=== PATIENT | female | born 1990 | race Caucasian/White ===

== ENCOUNTER 2019-01-21 08:43 | Emergency (ER) | payer OTHER ==
[~2019-01-21] VITALS: Ht 167.6 cm; Wt 56.7 kg
--- OUTSIDE RECORDS SUMMARY | 2019-01-21 08:49 | XMS REPORT | Continuity of Care Document ---
Author Organization Unknown Address Unknown Allergies There is no data. Medications There is no data. Problems There is no data. Procedures There is no data. Results There is no data. Encounters ACCT No. Visit Date/Time Discharge Status Pt. Type Provider Facility Loc./Unit Complaint [id number] 12/27/2018 13:10:00 12/27/2018 23:59:59 CLS Outpatient HAIDER NUNN [facility] IN [facility]
--- OUTSIDE RECORDS SUMMARY | 2019-01-21 08:49 | XMS REPORT ---
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
[2019-01-21 09:01] VITALS: BP_SYST 106; BP_SYST 107; BP_DIAS 65; BP_DIAS 66
--- NOTE | 2019-01-21 09:04 | ED Syncope ---
General Chief Complaint: Dizziness/Syncope Stated Complaint: NEAR SYNCOPE Source of Information: Patient Exam Limitations: No Limitations History of Present Illness Date Seen by Provider: January 21, 2019 Time Seen by Provider: 09:03 Initial Comments Patient presents c/ c/o of nearly passing out while @ work this AM. States she felt fine when she went to work @ 07:00. Says she became dizzy and may have passed out briefly, although states she could here people talking around her. No loss of bowel, or bladder. Denies any recent head injury, or trauma. Feels back to baseline now. Timing/Prior Episodes: No Prior History Symptoms Prior to Episode: Lightheadedness Precipitating Factors: Other (unknown) Loss of Consciousness: Brief (Seconds) (???) Current Symptoms: Back to Normal Allergies and Home Medications Allergies Coded Allergies: Penicillins (Verified Allergy, Unknown, 01/21/19) Home Medications Ciprofloxacin HCl 500 Mg Tablet, 500 MG PO BID Prescribed by: SHEFALI WILSON on 01/21/19 1003 Patient Home Medication List Home Medication List Reviewed: Yes Review of Systems Constitutional: see HPI Cardiovascular: syncope (near) Psychiatric/Neurological: See HPI, Other (dizzy/lighheaded) All Other Systems Reviewed Negative Unless Noted: Yes (Negative excepted noted.) Physical Exam Vital Signs Vital Signs - First Documented 01/21/19 08:50 Temp 98.6 Pulse 86 Resp 16 B/P (MAP) 112/74 (87) Pulse Ox 97 O2 Delivery Room Air Capillary Refill : Height, Weight, BMI Height: '" Weight: lbs. oz. kg; BMI Method: General Appearance: No Apparent Distress, WD/WN HEENT: Normal ENT Inspection Neck: Normal Inspection Cardiovascular: Regular Rate, Rhythm Respiratory: No Respiratory Distress Neurologic/Psychiatric: Alert, Oriented x3, No Motor/Sensory Deficits, Normal Mood/Affect Cranial Nerves: Normal Hearing, Normal Speech Motor/Sensory: No Motor Deficit, No Sensory Deficit Skin: Warm/Dry Progress/Results/Core Measures Results/Orders Lab Results Laboratory Tests Test 01/21/19 08:45 01/21/19 09:17 Range/Units Urine Color YELLOW Urine Clarity CLEAR Urine pH 7.0 5-9 Urine Specific [place] 1.015 L 1.016-1.022 Urine Protein NEGATIVE NEGATIVE Urine Glucose (UA) NEGATIVE NEGATIVE Urine Ketones NEGATIVE NEGATIVE Urine Nitrite NEGATIVE NEGATIVE Urine Bilirubin NEGATIVE NEGATIVE Urine Urobilinogen 0.2 NORMAL MG/DL Urine Leukocyte Esterase 1+ H NEGATIVE Urine RBC (Auto) NEGATIVE NEGATIVE Urine RBC NONE /HPF Urine WBC 5-10 H /HPF Urine Squamous Epithelial Cells 2-5 /HPF Urine Crystals NONE /LPF Urine Bacteria FEW H /HPF Urine Casts NONE /LPF Urine Mucus MODERATE H /LPF Urine Culture Indicated YES Urine Test NEGATIVE NEGATIVE White Blood Count 6.4 4.3-11.0 10^3/uL Red Blood Count 3.90 L 4.35-5.85 10^6/uL Hemoglobin 12.8 11.5-16.0 G/DL Hematocrit 38 35-52 % Mean Corpuscular Volume 96 80-99 FL Mean Corpuscular Hemoglobin 33 25-34 PG Mean Corpuscular Hemoglobin Concent 34 32-36 G/DL Red Cell Distribution Width 12.2 10.0-14.5 % Platelet Count 300 130-400 10^3/uL Mean Platelet Volume 9.4 7.4-10.4 FL Neutrophils (%) (Auto) 70 42-75 % Lymphocytes (%) (Auto) 20 12-44 % Monocytes (%) (Auto) 9 0-12 % Eosinophils (%) (Auto) 1 0-10 % Basophils (%) (Auto) 0 0-10 % Neutrophils # (Auto) 4.4 1.8-7.8 X 10^3 Lymphocytes # (Auto) 1.3 1.0-4.0 X 10^3 Monocytes # (Auto) 0.5 0.0-1.0 X 10^3 Eosinophils # (Auto) 0.1 0.0-0.3 10^3/uL Basophils # (Auto) 0.0 0.0-0.1 10^3/uL Sodium Level 143 135-145 MMOL/L Potassium Level 4.3 3.6-5.0 MMOL/L Chloride Level 106 98-107 MMOL/L Carbon Dioxide Level 24 21-32 MMOL/L Anion Gap 13 5-14 MMOL/L Blood Urea Nitrogen 14 7-18 MG/DL Creatinine 0.77 0.60-1.30 MG/DL Estimat Glomerular Filtration Rate > 60 BUN/Creatinine Ratio 18 Glucose Level 101 70-105 MG/DL Calcium Level 9.3 8.5-10.1 MG/DL Corrected Calcium 8.5-10.1 MG/DL Magnesium Level 2.0 1.8-2.4 MG/DL Total Bilirubin 0.4 0.1-1.0 MG/DL Aspartate Amino Transf (AST/SGOT) 11 5-34 U/L Alanine Aminotransferase (ALT/SGPT) 9 0-55 U/L Alkaline Phosphatase 74 40-136 U/L Total Protein 6.9 6.4-8.2 GM/DL Albumin 4.6 H 3.2-4.5 GM/DL My Orders Orders - SHEFALI WILSON DO Ua Culture If Indicated (01/21/19 09:00) Hcg,Qualitative Urine (01/21/19 09:00) Cbc With Automated Diff (01/21/19 09:04) Comprehensive Metabolic Panel (01/21/19 09:04) Magnesium (01/21/19 09:04) Orthostatic Vital Signs (Adult (01/21/19 09:04) Ed Iv/Invasive Line Start (01/21/19 09:04) Lactated Ringers (Lr 1000 Ml Iv Solution (01/21/19 09:15) Urine Culture (01/21/19 08:45) Ciprofloxacin Tablet (Cipro Tablet) (01/21/19 09:56) Vital Signs/I&O 01/21/19 01/21/19 08:50 09:01 Temp 98.6 Pulse 86 86 97 113 Resp 16 B/P (MAP) 112/74 (87) 106/65 (79) 107/65 (79) 106/66 (79) Pulse Ox 97 O2 Delivery Room Air Blood Pressure Mean: 79 Departure Impression Primary Impression: Near syncope Additional Impression: UTI (urinary tract infection) Disposition: 01 HOME, SELF-CARE Condition: Improved Departure-Patient Inst. Decision time for Depature: 10:02 Referrals: HAIDER NUNN MD (PCP/Family) Primary Care Physician Patient Instructions: Urinary Tract Infection, Adult (DC), Near Fainting (DC) Add. Discharge Instructions: All discharge instructions reviewed with patient and/or family. Voiced understanding. NEED TO STAY WELL HYDRATED. DRINK PLENTY OF WATER. Scripts Ciprofloxacin HCl (Ciprofloxacin HCl) 500 Mg Tablet 500 MG PO BID for UTI for 7 Days, #14 TAB 0 Refills Prov: SHEFALI WILSON DO 01/21/19 Work/School Note: Work Release Form Date Seen in the Emergency Department: January 21, 2019 Return to Work: January 22, 2019 SHEFALI WILSON DO January 21, 2019 09:04
[2019-01-21 09:15] LABS: BILIRUBIN,URINE NEGATIVE (NEGATIVE); CLARITY,URINE CLEAR; COLOR,URINE YELLOW; GLUCOSE, URINE (UA) NEGATIVE (NEGATIVE); KETONES,URINE NEGATIVE (NEGATIVE); LEUKOCYTE ESTERASE ,URINE 1+ (NEGATIVE); NITRITE,URINE NEGATIVE (NEGATIVE); PROTEIN,URINE NEGATIVE (NEGATIVE); UROBILINOGEN,URINE 0.2 MG/DL (NORMAL)
[2019-01-21] MEDS ORDERED: LACTATED RINGERS 1,000 ML IV SCH (09:15)
[2019-01-21 09:16] LABS: BACTERIA,URINE FEW /HPF; HCG,QUALITATIVE URINE NEGATIVE (NEGATIVE)
[2019-01-21 09:23] LABS: WHITE BLOOD COUNT 6.4 10^3/uL (4.3-11.0)
[2019-01-21 09:24] LABS: BASOPHILS % (AUTO) 0 % (0-10); EOSINOPHILS # (AUTO) 0.1 10^3/uL (0.0-0.3); EOSINOPHILS % (AUTO) 1 % (0-10); HEMATOCRIT 38 % (35-52); HEMOGLOBIN 12.8 G/DL (11.5-16.0); LYMPHOCYTES # (AUTO) 1.3 X 10^3 (1.0-4.0); LYMPHOCYTES % (AUTO) 20 % (12-44); MEAN CORPUSCULAR HEMOGLOBIN 33 PG (25-34); MEAN CORPUSCULAR HGB CONC 34 G/DL (32-36); MEAN CORPUSCULAR VOLUME 96 FL (80-99); MEAN PLATELET VOLUME 9.4 FL (7.4-10.4); MONOCYTES # (AUTO) 0.5 X 10^3 (0.0-1.0); MONOCYTES % (AUTO) 9 % (0-12); NEUTROPHILS # (AUTO) 4.4 X 10^3 (1.8-7.8); NEUTROPHILS % (AUTO) 70 % (42-75); PLATELET COUNT 300 10^3/uL (130-400); RED CELL DISTRIBUTION WIDTH 12.2 % (10.0-14.5)
[2019-01-21 09:45] LABS: ALANINE AMINOTRANSFERASE 9 U/L (0-55); ALKALINE PHOSPHATASE 74 U/L (40-136); BILIRUBIN,TOTAL 0.4 MG/DL (0.1-1.0); BUN/CREATININE RATIO 18; CALCIUM 9.3 MG/DL (8.5-10.1); CARBON DIOXIDE 24 MMOL/L (21-32); CHLORIDE 106 MMOL/L (98-107); CREATININE SERUM 0.77 MG/DL (0.60-1.30); GFR ESTIMATED > 60; GLUCOSE 101 MG/DL (70-105); POTASSIUM 4.3 MMOL/L (3.6-5.0); SODIUM 143 MMOL/L (135-145)
[2019-01-21 09:46] LABS: ALBUMIN 4.6 GM/DL (3.2-4.5); TOTAL PROTEIN 6.9 GM/DL (6.4-8.2)
[2019-01-21] MEDS ORDERED: CIPROFLOXACIN 500 MG (CIPRO) TABLET PO STA (09:56)
[2019-01-21] MEDS ORDERED: CIPR500T4 PO (10:03)
[2019-01-21 10:18] VITALS: BP 103/63
== END 2019-01-21 10:18 | disposition home or self-care (01) ==
LOC: ER FS 08:45
DX: N39.0 Urinary tract infection, site not specified (principal); R55 Syncope and collapse; Z88.0 Allergy status to penicillin
CPT/HCPCS: 36415; 80053; 81000; 83735; 84703; 85025; 87088; 96360

== ENCOUNTER 2019-06-15 22:23 | Emergency (ER) | payer OTHER ==
[~2019-06-15] VITALS: Ht 168 cm; Wt 62.0 kg
[~2019-06-15 22:23] MED LIST: CIPR500T4 PO
[2019-06-15] MEDS ORDERED: KETOROLAC 30 MG/ML VIAL IM ONE (22:45)
--- NOTE | 2019-06-15 22:52 | ED EENT ---
History of Present Illness General Chief Complaint: Ear Problems Stated Complaint: RIGHT EAR PAIN Source: patient Exam Limitations: no limitations History of Present Illness Date Seen by Provider: Jun 15, 2019 Time Seen by Provider: 22:31 Initial Comments Patient presents ER by private conveyance with chief complaint of pain around the right ear for the past day and a half. No fevers or chills. She noticed some yellow 10 discharge from the ear today. No history of ear infections swimming or surgeries on the eardrums. She is not having any dental pain. She's been using Tylenol 9 Profen with her last dose being at 9:00 400 mg. Allergies and Home Medications Allergies Coded Allergies: Penicillins (Verified Allergy, Unknown, 01/21/19) Home Medications Ciprofloxacin HCl 500 Mg Tablet, 500 MG PO BID Prescribed by: SHEFALI WILSON on 01/21/19 1003 Patient Home Medication List Home Medication List Reviewed: Yes Review of Systems Review of Systems Constitutional: No chills, No diaphoresis Eyes: Denies Blindness, Denies Blurred Vision Ears: See HPI; Denies Dizziness; Pain Nose: denies clots, denies congestion Past Enfclgc-Rjiyoy-Zklssh Hx Patient Social History Alcohol Use: Denies Use Recreational Drug Use: No 2nd Hand Smoke Exposure: No Recent Foreign Travel: No Contact w/Someone Who Travel: No Recent Hopitalizations: No Seasonal Allergies Seasonal Allergies: Yes Past Medical History Surgeries: Yes (knee surgery) Gallbladder Respiratory: No Cardiac: No Neurological: No Genitourinary: No Gastrointestinal: No Musculoskeletal: No Endocrine: No HEENT: No Cancer: No Psychosocial: No Physical Exam Height, Weight, BMI Height: 5'6.00" Weight: 125lbs. oz. [id number]; BMI Method:Stated General Appearance: WD/WN, mild distress Eyes: bilateral eye normal inspection, bilateral eye PERRL, bilateral eye EOMI Ears: right ear tenderness, right ear other (solitary whitish vesicle in the ear canal with an erythematous base); left ear canal normal; bilateral ear auricle normal, bilateral ear TM normal (bilateral mucoid otitis media without loss of landmarks.) Nose: normal inspection; No active bleeding Mouth/Throat: No dental tenderness; other (extensive dental caries) Neurologic/Psychiatric: rail director II-XII nml as tested, no motor/sensory deficits, alert, normal mood/affect, oriented x 3 Progress/Results/Core Measures Results/Orders My Orders Orders - SIENNA HUGHES Ketorolac Injection (Toradol Injection) (06/15/19 22:45) Progress Progress Note : Time: 22:45 Progress Note No altered taste perception, tongue lesions. No facial paralysis or drooping. Juan Alberto Garvin less likely. VZV Vs HSV? No evidence of a bacterial infection. Suspect a viral perhaps herpetic infection of the ear canal and possibly involving the cranial nerve. We'll start her on valacyclovir and give her a half dose of Toradol since she just took half a dose of ibuprofen. Discussed return precautions to primary care or ER for steroids if she begins to develop any neurologic symptoms such as facial droop, taste, paralysis etc. Departure Impression Primary Impression: Viral otitis externa of right ear Additional Impression: Otitis media with effusion Qualified Codes: H65.93 - Unspecified nonsuppurative otitis media, bilateral Disposition: 01 HOME, SELF-CARE Condition: Stable Departure-Patient Inst. Decision time for Depature: 22:49 Referrals: HAIDER NUNN MD (PCP/Family) Primary Care Physician Patient Instructions: Outer Ear Infection Add. Discharge Instructions: Start taking the valacyclovir 1000 mg 3 times a day for the next week. Continue to use Tylenol 1000 mg every 8 hours as needed for pain. Ibuprofen 800 mg every 8 hours as needed for pain. Warm compresses to the side of the face can be helpful. If you start to noticing any facial droop, alteration of taste or other worrisome neurologic symptoms then you need to follow-up with your primary care doctor and discuss starting steroids. All discharge instructions reviewed with patient and/or family. Voiced understanding. Scripts Valacyclovir HCl (Valacyclovir) 1,000 Mg Tablet 1000 MG PO TID for 7 Days, #21 TAB 0 Refills Prov: SIENNA HUGHES 06/15/19 Work/School Note: Work Release Form Date Seen in the Emergency Department: Jun 15, 2019 Return to Work: Jun 16, 2019 Restrictions: No Restrictions SIENNA HUGHES Jun 15, 2019 22:52
[2019-06-15] MEDS ORDERED: VALA1000 PO (22:54)
[2019-06-15 23:12] VITALS: BP 121/71
== END 2019-06-15 23:12 | disposition home or self-care (01) ==
LOC: EDUNIT# 22:23 → ER FS 22:24
DX: H60.8X1 Other otitis externa, right ear (principal); H65.93 Unspecified nonsuppurative otitis media, bilateral; Z88.0 Allergy status to penicillin
CPT/HCPCS: 99284

== ENCOUNTER 2021-04-07 08:33 | Emergency (ER) | payer OTHER ==
[~2021-04-07] VITALS: Ht 165.1 cm; Wt 66.1 kg
[~2021-04-07 08:33] MED LIST changes: -CIPR500T4 PO; +CIPR500T5 PO; +VALA10007 PO
[2021-04-07] MEDS ORDERED: fentaNYL INJ 100 MCG/2 ML AMP IVP STA (08:43)
--- NOTE | 2021-04-07 08:43 | ED Abdominal Pain ---
General Chief Complaint: Abdominal/GI Problems Stated Complaint: LRQ PAIN; INDIGESTION History of Present Illness Date Seen by Provider: Apr 07, 2021 Time Seen by Provider: 08:39 Initial Comments 30-year-old female presents with right lower quadrant pain that started about 2 days ago. That over the last 2 days is gotten worse. 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 Patient presented to urgent care who sent her to the ER for further evaluation for appendicitis. She denies any vomiting, diarrhea, fevers or chills. Allergies and Home Medications Allergies Coded Allergies: Penicillins (Verified Allergy, Unknown, 01/21/19) Home Medications Ciprofloxacin HCl 500 Mg Tablet, 500 MG PO BID Prescribed by: SHEFALI WILSON on 01/21/19 1003 Doxycycline Hyclate 100 Mg Tablet, 100 MG PO BID Prescribed by: THOMAS SHAVER on 04/07/21 0958 Valacyclovir HCl 1,000 Mg Tablet, 1,000 MG PO TID Prescribed by: SIENNA HUGHES on 06/15/19 6839 Patient Home Medication List Home Medication List Reviewed: Yes Review of Systems Review of Systems Constitutional: No chills, No fever Respiratory: Denies Cough, Denies Shortness of Air Cardiovascular: Denies Chest Pain, Denies Lightheadedness Gastrointestinal: Abdominal Pain; Denies Constipated, Denies Diarrhea; Nausea; Denies Vomiting Genitourinary: No Symptoms Reported Musculoskeletal: no symptoms reported Skin: no symptoms reported Psychiatric/Neurological: No Symptoms Reported Endocrine: No Symptoms Reported Past Uicivlg-Emrhbi-Fradkb Hx Seasonal Allergies Seasonal Allergies: Yes Past Medical History Surgeries: Yes (knee surgery) Gallbladder Respiratory: No Cardiac: No Neurological: No Genitourinary: No Gastrointestinal: No Musculoskeletal: No Endocrine: No HEENT: No Cancer: No Psychosocial: No Physical Exam Vital Signs Vital Signs - First Documented 04/07/21 08:38 Temp 36.4 Pulse 94 Resp 18 B/P (MAP) 130/78 (95) Pulse Ox 100 O2 Delivery Room Air Capillary Refill : Height/Weight/BMI Height: 5'6.00" Weight: 125lbs. oz. 56.010307az; 21.00 BMI Method:Stated General Appearance: WD/WN, no apparent distress Neck: full range of motion, supple Respiratory: lungs clear, normal breath sounds Cardiovascular: normal peripheral pulses, regular rate, rhythm Gastrointestinal: soft, guarding, rebound, tenderness Extremities: normal range of motion, non-tender Back: normal inspection, no CVA tenderness Neurologic/Psychiatric: alert, normal mood/affect, oriented x 3 Skin: normal color, warm/dry Progress/Results/Core Measures Results/Orders Lab Results Laboratory Tests Test 04/07/21 08:45 04/07/21 09:09 Range/Units White Blood Count 9.4 4.3-11.0 10^3/uL Red Blood Count 3.85 L 4.35-5.85 10^6/uL Hemoglobin 12.6 11.5-16.0 G/DL Hematocrit 36 35-52 % Mean Corpuscular Volume 95 80-99 FL Mean Corpuscular Hemoglobin 33 25-34 PG Mean Corpuscular Hemoglobin Concent 35 32-36 G/DL Red Cell Distribution Width 12.0 10.0-14.5 % Platelet Count 273 130-400 10^3/uL Mean Platelet Volume 9.6 7.4-10.4 FL Sodium Level 136 135-145 MMOL/L Potassium Level 3.8 3.6-5.0 MMOL/L Chloride Level 102 98-107 MMOL/L Carbon Dioxide Level 25 21-32 MMOL/L Anion Gap 9 5-14 MMOL/L Blood Urea Nitrogen 8 7-18 MG/DL Creatinine 0.79 0.60-1.30 MG/DL Estimat Glomerular Filtration Rate 84 BUN/Creatinine Ratio 10 Glucose Level 91 70-105 MG/DL Calcium Level 9.1 8.5-10.1 MG/DL Corrected Calcium 8.7 8.5-10.1 MG/DL Total Bilirubin 0.5 0.1-1.0 MG/DL Aspartate Amino Transf (AST/SGOT) 13 5-34 U/L Alanine Aminotransferase (ALT/SGPT) 10 0-55 U/L Alkaline Phosphatase 101 40-136 U/L C-Reactive Protein < 0.30 <0.50 MG/DL Total Protein 6.9 6.4-8.2 GM/DL Albumin 4.5 3.2-4.5 GM/DL Urine Color YELLOW Urine Clarity CLEAR Urine pH 5.0 5-9 Urine Specific [place] <=1.005 1.016-1.022 Urine Protein NEGATIVE NEGATIVE Urine Glucose (UA) NEGATIVE NEGATIVE Urine Ketones NEGATIVE NEGATIVE Urine Nitrite NEGATIVE NEGATIVE Urine Bilirubin NEGATIVE NEGATIVE Urine Urobilinogen 0.2 < = 1.0 MG/DL Urine Leukocyte Esterase 2+ H NEGATIVE Urine RBC (Auto) NEGATIVE NEGATIVE Urine RBC 0.2 /HPF Urine WBC 5-10 H /HPF Urine Squamous Epithelial Cells 5-10 /HPF Urine Crystals NONE /LPF Urine Bacteria TRACE /HPF Urine Casts NONE /LPF Urine Mucus NEGATIVE /LPF Urine Trichomonas FEW H /HPF Urine Culture Indicated YES Urine Test NEGATIVE NEGATIVE My Orders Orders - SHAVERTHOMAS L DO Ct Abd/Pelv W (Appendicitis) (04/07/21 08:43) Cbc No Diff (04/07/21 08:43) Comprehensive Metabolic Panel (04/07/21 08:43) Hcg,Qualitative Urine (04/07/21 08:43) Ua Culture If Indicated (04/07/21 08:43) Crp Fs (04/07/21 08:43) Fentanyl Inj (Sublimaze Injection) (04/07/21 08:43) Ed Iv/Invasive Line Start (04/07/21 08:43) Iohexol Injection (Omnipaque 350 Mg/Ml 1 (04/07/21 09:30) Received Contrast (Hold Metformin- Contr (04/07/21 09:30) Sodium Chloride Flush (Catheter Flush Sy (04/07/21 09:30) Ns (Ivpb) (Sodium Chloride 0.9% Ivpb Bag (04/07/21 09:30) Chlamydia Trachomatis Urine (04/07/21 09:53) Neis Bj Dna Urine Test (04/07/21 09:53) Urine Culture (04/07/21 09:09) Metronidazole Tablet (Flagyl Tablet) (04/07/21 10:00) Ceftriaxone (Rocephin) (04/07/21 10:00) Medications Given in ED Current Medications Medications Dose Ordered Sig/Brady Route Start Time Stop Time Status Last Admin Dose Admin Ceftriaxone Sodium 500 mg ONCE ONCE IM 04/07/21 10:00 04/07/21 10:01 DC 04/07/21 10:07 500 MG Iohexol 100 ml ONCE ONCE IV 04/07/21 09:30 04/07/21 09:31 DC 04/07/21 09:49 100 ML Metronidazole 2,000 mg ONCE ONCE PO 04/07/21 10:00 04/07/21 10:01 DC 04/07/21 10:08 2,000 MG Sodium Chloride 10 ml NEEDED PRN IV 04/07/21 09:30 04/07/21 10:28 DC 04/07/21 09:50 10 ML Sodium Chloride 100 ml ONCE ONCE IV 04/07/21 09:30 04/07/21 09:31 DC 04/07/21 09:50 100 ML Vital Signs/I&O 04/07/21 04/07/21 04/07/21 08:38 09:53 10:27 Temp 36.4 36.4 36.2 Pulse 94 88 Resp 18 18 B/P (MAP) 130/78 (95) 126/70 (95) Pulse Ox 100 100 O2 Delivery Room Air Room Air Progress Progress Note : Progress Note Patient with a negative CT scan, negative white count negative CRP. Patient does have symptoms on a urine suspicious for pelvic inflammatory disease with positive for trichomonas. Patient was given Rocephin, Flagyl here in the ER and will be sent home with doxycycline for 7 days. Patient was stable upon discharge and is to follow-up with her primary care provider in 5 to 6 days for recheck of her symptoms Diagnostic Imaging Diagonstic Imaging: CT Plain Films/CT/US/NM/MRI: abdomen Comments Date of Exam:04/07/21 CT ABD/PELV W (APPENDICITIS) PROCEDURE: CT abdomen and pelvis with contrast, rule out appendicitis. TECHNIQUE: Multiple contiguous axial images were obtained through the abdomen and pelvis after the administration of intravenous contrast. All CT scans use one or more of the following dose optimizing techniques: automated exposure control, MA and/or KvP adjustment based on patient size and exam type or iterative reconstruction. INDICATION: Right lower quadrant abdominal pain. COMPARISON: None. FINDINGS: The lung bases are clear. The gallbladder is surgically absent. Solid organs and vascular structures are grossly normal. There are some nonspecific fluid-filled loops of small bowel within the pelvis which could represent enteritis. There is some mild constipation scattered throughout the colon. There is no obstruction, free air or free fluid. The appendix is seen in the right midabdomen in the lateral aspect. There is no appendicitis. Reproductive organs appear grossly unremarkable. Physiologic follicles are seen on both ovaries. There is no inflammation. The urinary bladder is intact. There is no lymphadenopathy. No hernia identified. Osseous structures are age-appropriate. IMPRESSION: 1. Nonspecific fluid-filled loops of small bowel could represent enteritis. Please correlate clinically. 2. Mild constipation without obstruction or ileus. 3. No appendicitis identified. 4. Surgically absent gallbladder. Reviewed: Reviewed by Me, Reviewed/Discussed Departure Impression Primary Impression: Trichomonas vaginalis infection Additional Impression: Pelvic inflammatory disease (PID) Disposition: HOME, SELF-CARE Condition: Stable Departure-Patient Inst. Referrals: HAIDER NUNN MD (PCP/Family) Primary Care Physician Patient Instructions: Trichomoniasis (DC), Pelvic Inflammatory Disease ED Add. Discharge Instructions: Follow-up with your primary care provider in 5 to 7 days for recheck of your symptoms and repeat urine All discharge instructions reviewed with patient and/or family. Voiced understanding. Scripts Doxycycline Hyclate (Doxycycline Hyclate) 100 Mg Tablet 100 MG PO BID, #14 TAB 0 Refills Prov: THOMAS SHAVER DO 04/07/21 Work/School Note: Work Release Form Date Seen in the Emergency Department: Apr 07, 2021 Return to Work: Apr 08, 2021 THOMAS SHAVER DO Apr 07, 2021 08:43
[2021-04-07 09:04] LABS: HEMATOCRIT 36 % (35-52); HEMOGLOBIN 12.6 G/DL (11.5-16.0); MEAN CORPUSCULAR HEMOGLOBIN 33 PG (25-34); MEAN CORPUSCULAR HGB CONC 35 G/DL (32-36); MEAN CORPUSCULAR VOLUME 95 FL (80-99); WHITE BLOOD COUNT 9.4 10^3/uL (4.3-11.0)
[2021-04-07 09:05] LABS: MEAN PLATELET VOLUME 9.6 FL (7.4-10.4); PLATELET COUNT 273 10^3/uL (130-400)
[2021-04-07 09:18] LABS: BILIRUBIN,URINE NEGATIVE (NEGATIVE); CLARITY,URINE CLEAR; COLOR,URINE YELLOW; GLUCOSE, URINE (UA) NEGATIVE (NEGATIVE); KETONES,URINE NEGATIVE (NEGATIVE); LEUKOCYTE ESTERASE ,URINE 2+ (NEGATIVE); NITRITE,URINE NEGATIVE (NEGATIVE); PROTEIN,URINE NEGATIVE (NEGATIVE)
[2021-04-07] MEDS ORDERED: IOHEXOL 350 MG/ML 100 ML (OMNIPAQUE 350) VIAL IV ONE (09:30)
[2021-04-07] MEDS ORDERED: HOLD METFORMIN - RECEIVED CONTRAST 20 ML VIAL IV SCH (09:30)
[2021-04-07] MEDS ORDERED: NS 100 ML (IVPB) BAG IV ONE (09:30)
[2021-04-07] MEDS ORDERED: CATHETER FLUSH 10 ML SYR IV PRN (09:30)
[2021-04-07 09:34] LABS: ALANINE AMINOTRANSFERASE 10 U/L (0-55); ALBUMIN 4.5 GM/DL (3.2-4.5); ALKALINE PHOSPHATASE 101 U/L (40-136); BILIRUBIN,TOTAL 0.5 MG/DL (0.1-1.0); BUN/CREATININE RATIO 10; CALCIUM 9.1 MG/DL (8.5-10.1); CARBON DIOXIDE 25 MMOL/L (21-32); CHLORIDE 102 MMOL/L (98-107); CREATININE SERUM 0.79 MG/DL (0.60-1.30); GFR ESTIMATED 84; GLUCOSE 91 MG/DL (70-105); POTASSIUM 3.8 MMOL/L (3.6-5.0); SODIUM 136 MMOL/L (135-145); TOTAL PROTEIN 6.9 GM/DL (6.4-8.2)
[2021-04-07 09:44] LABS: BACTERIA,URINE TRACE /HPF; RBC,URINE 0.2 /HPF
[2021-04-07 09:45] LABS: TRICHOMONAS,URINE FEW /HPF
[2021-04-07] MEDS ORDERED: DOXY100T2 PO (09:58)
[2021-04-07] MEDS ORDERED: cefTRIAXone 1,000 MG VIAL IM ONE (10:00)
[2021-04-07] MEDS ORDERED: metroNIDAZOLE 500 MG (FLAGYL) TAB PO ONE (10:00)
--- NOTE | 2021-04-07 10:11 | Diagnostic Imaging Report ---
PROCEDURE: CT abdomen and pelvis with contrast, rule out appendicitis. TECHNIQUE: Multiple contiguous axial images were obtained through the abdomen and pelvis after the administration of intravenous contrast. All CT scans use one or more of the following dose optimizing techniques: automated exposure control, MA and/or KvP adjustment based on patient size and exam type or iterative reconstruction. INDICATION: Right lower quadrant abdominal pain. COMPARISON: None. FINDINGS: The lung bases are clear. The gallbladder is surgically absent. Solid organs and vascular structures are grossly normal. There are some nonspecific fluid-filled loops of small bowel within the pelvis which could represent enteritis. There is some mild constipation scattered throughout the colon. There is no obstruction, free air or free fluid. The appendix is seen in the right midabdomen in the lateral aspect. There is no appendicitis. Reproductive organs appear grossly unremarkable. Physiologic follicles are seen on both ovaries. There is no inflammation. The urinary bladder is intact. There is no lymphadenopathy. No hernia identified. Osseous structures are age-appropriate. IMPRESSION: 1. Nonspecific fluid-filled loops of small bowel could represent enteritis. Please correlate clinically. 2. Mild constipation without obstruction or ileus. 3. No appendicitis identified. 4. Surgically absent gallbladder. Dictated by: Dictated on workstation # [id number]
[2021-04-07 10:27] VITALS: BP 126/70
== END 2021-04-07 10:27 | disposition home or self-care (01) ==
LOC: EDUNIT# 08:33 → ER FS 08:34
DX: A59.01 Trichomonal vulvovaginitis (principal); N73.9 Female pelvic inflammatory disease, unspecified
CPT/HCPCS: 36415; 74177; 80053; 81000; 84703; 85027; 86141; 87088; 87491; 87591

== ENCOUNTER 2022-01-02 08:39 | Emergency (ER) | payer OTHER ==
[~2022-01-02] VITALS: Ht 165 cm; Wt 160.0 kg
[~2022-01-02 08:39] MED LIST changes: +DOXY100T2 PO
[2022-01-02] MEDS ORDERED: ONDANSETRON 4 MG/2 ML (SDV) Z0FRAN IVP ONE (09:00)
[2022-01-02] MEDS ORDERED: NS IV 1000 ML 1,000 ML IV SCH (09:00)
[2022-01-02 09:17] LABS: BASOPHILS % (AUTO) 0 % (0-10); EOSINOPHILS # (AUTO) 0.1 10^3/uL (0.0-0.3); EOSINOPHILS % (AUTO) 1 % (0-10); HEMATOCRIT 37 % (35-52); HEMOGLOBIN 12.9 g/dL (11.5-16.0); LYMPHOCYTES # (AUTO) 1.4 10^3/uL (1.0-4.0); LYMPHOCYTES % (AUTO) 18 % (12-44); MEAN CORPUSCULAR HEMOGLOBIN 33 pg (25-34); MEAN CORPUSCULAR HGB CONC 35 g/dL (32-36); MEAN CORPUSCULAR VOLUME 95 fL (80-99); MEAN PLATELET VOLUME 9.8 fL (9.0-12.2); MONOCYTES # (AUTO) 0.8 10^3/uL (0.0-1.0); MONOCYTES % (AUTO) 10 % (0-12); NEUTROPHILS # (AUTO) 5.7 10^3/uL (1.8-7.8); NEUTROPHILS % (AUTO) 71 % (42-75); PLATELET COUNT 255 10^3/uL (130-400)
--- NOTE | 2022-01-02 09:23 | ED General ---
General Chief Complaint: Abdominal/GI Problems Stated Complaint: SYNCOPAL EPISODE Source of Information: Patient History of Present Illness Date Seen by Provider: January 02, 2022 Time Seen by Provider: 08:45 Initial Comments Patient is a 37-year-old G2, P1, estimated 4 weeks gestation female presents with dizziness while working indoors at work. Patient reports positive home test 2 weeks ago with daily morning sickness. This morning while at work she felt nauseated and dizzy and. Patient drinks a warm indoor environment with limited circulation with decreased caloric intake despite drinking constan tly throughout the day. Denies fever chills chest pain palpitation shortness of breath. Denies vomiting. No abdominal pain, urinary frequency urgency or dysuria. No leg pain or swelling. No other acute symptoms or complaints. Last menstrual period was approximately 4 to 6 weeks ago. Timing/Duration: 1 Week Severity: Mild Modifying Factors: improves with Other Associated Systoms: Other Allergies and Home Medications Allergies Coded Allergies: Penicillins (Verified Allergy, Unknown, 01/21/19) Patient Home Medication List Home Medication List Reviewed: Yes Ciprofloxacin HCl (Ciprofloxacin HCl) 500 Mg Tablet, 500 MG PO BID Prescribed by: SHEFALI WILSON on 01/21/19 1003 Doxycycline Hyclate (Doxycycline Hyclate) 100 Mg Tablet, 100 MG PO BID Prescribed by: THOMAS SHAVER on 04/07/21 0954 Valacyclovir HCl (Valacyclovir) 1,000 Mg Tablet, 1,000 MG PO TID Prescribed by: SIENNA HUGHES on 06/15/19 4626 Review of Systems Review of Systems Constitutional: see HPI EENTM: see HPI Respiratory: see HPI Cardiovascular: see HPI Gastrointestinal: see HPI Musculoskeletal: see HPI Skin: see HPI Psychiatric/Neurological: See HPI Hematologic/Lymphatic: See HPI Immunological/Allergic: see HPI All Other Systems Reviewed Negative Unless Noted: Yes Past Njalkvc-Klgerm-Cwijrv Hx Patient Social History Tobacco Use?: Yes Use of E-Cig and/or Vaping dev: No Substance use?: No Alcohol Use?: No Seasonal Allergies Seasonal Allergies: Yes Past Medical History Surgery/Hospitalization HX: GB, R knee arthroscopy, T&A Surgeries: Yes (knee surgery) Gallbladder Respiratory: No Cardiac: No Neurological: No Genitourinary: No Gastrointestinal: No Musculoskeletal: No Endocrine: No HEENT: No Cancer: No Psychosocial: No Physical Exam Vital Signs Vital Signs - First Documented 01/02/22 09:12 Temp 36.6 Pulse 103 Resp 12 B/P (MAP) 113/61 (78) Pulse Ox 99 O2 Delivery Room Air Capillary Refill : Height, Weight, BMI Height: 5'6.00" Weight: 125lbs. oz. 56.850058wh; 24.00 BMI Method:Stated General Appearance: No Apparent Distress, WD/WN Eyes: Bilateral Eye Normal Inspection, Bilateral Eye PERRL, Bilateral Eye EOMI HEENT: PERRL/EOMI, Moist Mucous Membranes Respiratory: Lungs Clear, Normal Breath Sounds Cardiovascular: Regular Rate, Rhythm Gastrointestinal: Non Tender, Soft Neurologic/Psychiatric: Alert, Oriented x3, No Motor/Sensory Deficits Skin: Normal Color Focused Exam Sepsis Stage: Ruled Out Progress/Results/Core Measures Suspected Sepsis SIRS Temperature: Pulse: Respiratory Rate: Laboratory Tests 01/02/22 08:51: White Blood Count 8.0 Blood Pressure / Mean: Laboratory Tests 01/02/22 08:51: Creatinine 0.60, Platelet Count 255, Total Bilirubin 0.3 Results/Orders Lab Results Laboratory Tests Test 01/02/22 08:51 Range/Units White Blood Count 8.0 4.3-11.0 10^3/uL Red Blood Count 3.94 3.80-5.11 10^6/uL Hemoglobin 12.9 11.5-16.0 g/dL Hematocrit 37 35-52 % Mean Corpuscular Volume 95 80-99 fL Mean Corpuscular Hemoglobin 33 25-34 pg Mean Corpuscular Hemoglobin Concent 35 32-36 g/dL Red Cell Distribution Width 12.5 10.0-14.5 % Platelet Count 255 130-400 10^3/uL Mean Platelet Volume 9.8 9.0-12.2 fL Immature Granulocyte % (Auto) 0 % Neutrophils (%) (Auto) 71 42-75 % Lymphocytes (%) (Auto) 18 12-44 % Monocytes (%) (Auto) 10 0-12 % Eosinophils (%) (Auto) 1 0-10 % Basophils (%) (Auto) 0 0-10 % Neutrophils # (Auto) 5.7 1.8-7.8 10^3/uL Lymphocytes # (Auto) 1.4 1.0-4.0 10^3/uL Monocytes # (Auto) 0.8 0.0-1.0 10^3/uL Eosinophils # (Auto) 0.1 0.0-0.3 10^3/uL Basophils # (Auto) 0.0 0.0-0.1 10^3/uL Immature Granulocyte # (Auto) 0.0 0.0-0.1 10^3/uL Sodium Level 135 135-145 MMOL/L Potassium Level 4.2 3.6-5.0 MMOL/L Chloride Level 104 98-107 MMOL/L Carbon Dioxide Level 22 21-32 MMOL/L Anion Gap 9 5-14 MMOL/L Blood Urea Nitrogen 9 7-18 MG/DL Creatinine 0.60 0.60-1.30 MG/DL Estimat Glomerular Filtration Rate 121 BUN/Creatinine Ratio 15 Glucose Level 98 70-105 MG/DL Calcium Level 9.2 8.5-10.1 MG/DL Corrected Calcium 9.0 8.5-10.1 MG/DL Total Bilirubin 0.3 0.1-1.0 MG/DL Aspartate Amino Transf (AST/SGOT) 9 5-34 U/L Alanine Aminotransferase (ALT/SGPT) 7 0-55 U/L Alkaline Phosphatase 65 40-136 U/L Total Protein 6.8 6.4-8.2 GM/DL Albumin 4.2 3.2-4.5 GM/DL My Orders Orders - HALLEY WHITE DO Cbc With Automated Diff (01/02/22 08:48) Comprehensive Metabolic Panel (01/02/22 08:48) Urinalysis (01/02/22 08:48) Urine Bedside (01/02/22 08:48) Ns Iv 1000 Ml (Sodium Chloride 0.9%) (01/02/22 09:00) Ondansetron Injection (Zofran Injectio (01/02/22 09:00) Medications Given in ED Current Medications Medications Dose Ordered Sig/Brady Route Start Time Stop Time Status Last Admin Dose Admin Ondansetron HCl 4 mg ONCE ONCE IVP 01/02/22 09:00 01/02/22 09:01 DC 01/02/22 09:06 4 MG Vital Signs/I&O 01/02/22 09:12 Temp 36.6 Pulse 103 Resp 12 B/P (MAP) 113/61 (78) Pulse Ox 99 O2 Delivery Room Air Capillary Refill : Departure Communication (Admissions) IV fluids given nausea given with clinical improvement. Vital signs stable. Lab work reviewed and reassuring. Recommendations are continued supportive care with OB follow-up for workplace restrictions. Return precautions reviewed. Patient verbalizes understanding agreement discharge instructions prior to departure. Impression Primary Impression: Dizziness Additional Impression: Nausea & vomiting Disposition: 01 HOME, SELF-CARE Condition: Stable Departure-Patient Inst. Decision time for Depature: 09:39 Referrals: HAIDER NUNN MD (PCP) Primary Care Physician Patient Instructions: Dizziness, Adult ED, Nausea and Vomiting, Adult ED Add. Discharge Instructions: You were evaluated in the emergency department for dizziness and nausea. Please go home and rest increase fluids and take nausea medication as directed. Follow-up with your OB as scheduled. Return to the ED if new or worsening symptoms. All discharge instructions reviewed with patient and/or family. Voiced understanding. Scripts Ondansetron (Ondansetron Odt) 4 Mg Tab.rapdis 4 MG PO Q6H, #12 TAB Prov: HALLEY WHITE DO 01/02/22 HALLEY WHITE DO January 02, 2022 09:23
[2022-01-02 09:36] LABS: CALCIUM 9.2 MG/DL (8.5-10.1); CREATININE SERUM 0.6 MG/DL (0.60-1.30); POTASSIUM 4.2 MMOL/L (3.6-5.0)
[2022-01-02 09:37] LABS: ALBUMIN 4.2 GM/DL (3.2-4.5); BILIRUBIN,TOTAL 0.3 MG/DL (0.1-1.0); TOTAL PROTEIN 6.8 GM/DL (6.4-8.2)
[2022-01-02] MEDS ORDERED: ONDA4TAB11 PO (09:40)
[2022-01-02 09:56] LABS: BILIRUBIN,URINE NEGATIVE (NEGATIVE); CLARITY,URINE SL CLOUDY; COLOR,URINE YELLOW; GLUCOSE, URINE (UA) NEGATIVE (NEGATIVE); KETONES,URINE NEGATIVE (NEGATIVE); LEUKOCYTE ESTERASE ,URINE TRACE (NEGATIVE); NITRITE,URINE NEGATIVE (NEGATIVE); PROTEIN,URINE NEGATIVE (NEGATIVE)
[2022-01-02 10:07] LABS: BACTERIA,URINE FEW /HPF
[2022-01-02 10:25] VITALS: BP 109/62
[2022-01-02] MEDS ORDERED: METR60GE TP (21:58)
== END 2022-01-02 10:25 | disposition home or self-care (01) ==
LOC: EDUNIT# 08:39 → ER FS 08:40
DX: O21.0 Mild hyperemesis gravidarum (principal); O99.351 Diseases of the nervous system complicating pregnancy, first trimester; R42 Dizziness and giddiness; Z3A.01 Less than 8 weeks gestation of pregnancy
CPT/HCPCS: 36415; 80053; 81000; 85025; 87088

== ENCOUNTER 2022-01-02 20:12 | Emergency (ER) | payer OTHER ==
[~2022-01-02] VITALS: Ht 165.1 cm; Wt 64.9 kg
[~2022-01-02 20:12] MED LIST changes: +ONDA4TAB11 PO
[2022-01-02 20:51] LABS: BASOPHILS % (AUTO) 0 % (0-10); EOSINOPHILS # (AUTO) 0.1 10^3/uL (0.0-0.3); EOSINOPHILS % (AUTO) 1 % (0-10); HEMATOCRIT 35 % (35-52); HEMOGLOBIN 12.4 g/dL (11.5-16.0); LYMPHOCYTES # (AUTO) 1.3 10^3/uL (1.0-4.0); LYMPHOCYTES % (AUTO) 16 % (12-44); MEAN CORPUSCULAR HEMOGLOBIN 33 pg (25-34); MEAN CORPUSCULAR HGB CONC 36 g/dL (32-36); MEAN CORPUSCULAR VOLUME 94 fL (80-99); MEAN PLATELET VOLUME 9.3 fL (9.0-12.2); MONOCYTES # (AUTO) 0.7 10^3/uL (0.0-1.0); MONOCYTES % (AUTO) 9 % (0-12); NEUTROPHILS # (AUTO) 5.9 10^3/uL (1.8-7.8); NEUTROPHILS % (AUTO) 74 % (42-75); PLATELET COUNT 220 10^3/uL (130-400)
[2022-01-02 20:57] LABS: BILIRUBIN,URINE NEGATIVE (NEGATIVE); CLARITY,URINE CLEAR; COLOR,URINE YELLOW; GLUCOSE, URINE (UA) NEGATIVE (NEGATIVE); KETONES,URINE NEGATIVE (NEGATIVE); LEUKOCYTE ESTERASE ,URINE 1+ (NEGATIVE); NITRITE,URINE NEGATIVE (NEGATIVE); PROTEIN,URINE NEGATIVE (NEGATIVE)
[2022-01-02 20:58] LABS: BACTERIA,URINE FEW /HPF; URINE OTHER CLUE CELLS NOTED /HPF; WBC,URINE RARE /HPF
[2022-01-02 21:34] LABS: POTASSIUM 4.1 MMOL/L (3.6-5.0)
[2022-01-02 21:36] LABS: BILIRUBIN,TOTAL 0.4 MG/DL (0.1-1.0); CALCIUM 9.2 MG/DL (8.5-10.1); CREATININE SERUM 0.53 MG/DL (0.60-1.30); TOTAL PROTEIN 6.6 GM/DL (6.4-8.2)
--- NOTE | 2022-01-02 21:54 | ED GU-Female ---
General Chief Complaint: - Reproductive Stated Complaint: OB,LOWER ABD PAIN/CRAMPS,DIZZY,FATIGUE,LIGHTHEADED Nursing Triage Note: Patient states that she is and feels like she is having period cramps. Patient denies having any bleeding. Patient states she wanted to be safe and get checked out. Source: patient Exam Limitations: no limitations History of Present Illness Date Seen by Provider: January 02, 2022 Time Seen by Provider: 20:45 Initial Comments Patient is a 31-year-old G2, P1, estimated 6-week gestation female presents with intermittent pelvic/cramping starting this evening. Patient reports sharp cramps with mild tenderness. No discharge or bleeding. No flank pain, urinary frequency urgency or dysuria. No other acute symptoms or complaints. Patient had positive home test 2 weeks ago. Timing/Duration: just prior to arrival Severity/Quality: mild Location: vaginal Radiation: other Activities at Onset: other Sexual [place] History: other Modifying Factors: Improves With Other Associated Symptoms: other Allergies and Home Medications Allergies Coded Allergies: Penicillins (Verified Allergy, Unknown, 01/21/19) Patient Home Medication List Home Medication List Reviewed: Yes Ciprofloxacin HCl (Ciprofloxacin HCl) 500 Mg Tablet, 500 MG PO BID Prescribed by: SHEFALI WILSON on 01/21/19 1003 Doxycycline Hyclate (Doxycycline Hyclate) 100 Mg Tablet, 100 MG PO BID Prescribed by: THOMAS SHAVER on 04/07/21 0958 Ondansetron (Ondansetron Odt) 4 Mg Tab.rapdis, 4 MG PO Q6H Prescribed by: HALLEY WHITE on 01/02/22 0940 Valacyclovir HCl (Valacyclovir) 1,000 Mg Tablet, 1,000 MG PO TID Prescribed by: SIENNA HUGHES on 06/15/19 5348 Review of Systems Review of Systems Constitutional: see HPI EENTM: see HPI Respiratory: see HPI Cardiovascular: see HPI Gastrointestinal: see HPI Genitourinary: see HPI Musculoskeletal: see HPI Skin: see HPI Psychiatric/Neurological: See HPI Endocrine: See HPI Hematologic/Lymphatic: See HPI All Other Systemes Reviewed Negative Unless Noted: Yes Past Mxwksgv-Sjazun-Dufaiu Hx Patient Social History Tobacco Use?: No Substance use?: No Alcohol Use?: No Pt feels they are or have been: No Seasonal Allergies Seasonal Allergies: Yes Past Medical History Surgery/Hospitalization HX: GB, R knee arthroscopy, T&A Surgeries: Yes (knee surgery) Gallbladder Respiratory: No Cardiac: No Neurological: No Genitourinary: No Gastrointestinal: No Musculoskeletal: No Endocrine: No HEENT: No Cancer: No Psychosocial: No Physical Exam Vital Signs Vital Signs - First Documented 01/02/22 20:15 Temp 36.7 Pulse 103 Resp 16 B/P (MAP) 116/71 (86) Pulse Ox 99 O2 Delivery Room Air Capillary Refill : Less Than 3 Seconds Height, Weight, BMI Height: 5'6.00" Weight: 125lbs. oz. 56.635844zi; 23.00 BMI Method:Stated General Appearance: WD/WN, no apparent distress Gastrointestinal: non tender, soft Genital/Rectal: other (deferred) Pelvic: other (deferred) Neurologic/Psychiatric: alert Focused Exam Sepsis Stage: Ruled Out Progress/Results/Core Measures Suspected Sepsis SIRS Temperature: Pulse: 103 Respiratory Rate: 16 Laboratory Tests 01/02/22 20:46: White Blood Count 8.0 Blood Pressure 116 /71 Mean: 86 Laboratory Tests 01/02/22 20:46: Creatinine 0.53L, Platelet Count 220, Total Bilirubin 0.4 Results/Orders Lab Results Laboratory Tests Test 01/02/22 20:20 01/02/22 20:46 01/02/22 20:50 Range/Units Urine Color YELLOW Urine Clarity CLEAR Urine pH 8.0 5-9 Urine Specific [place] 1.015 L 1.016-1.022 Urine Protein NEGATIVE NEGATIVE Urine Glucose (UA) NEGATIVE NEGATIVE Urine Ketones NEGATIVE NEGATIVE Urine Nitrite NEGATIVE NEGATIVE Urine Bilirubin NEGATIVE NEGATIVE Urine Urobilinogen 0.2 < = 1.0 MG/DL Urine Leukocyte Esterase 1+ H NEGATIVE Urine RBC (Auto) NEGATIVE NEGATIVE Urine RBC NONE /HPF Urine WBC RARE /HPF Urine Squamous Epithelial Cells 2-5 /HPF Urine Crystals NONE /LPF Urine Bacteria FEW H /HPF Urine Casts NONE /LPF Urine Mucus SMALL H /LPF Urine Other CLUE CELLS NOTED /HPF Urine Culture Indicated NO White Blood Count 8.0 4.3-11.0 10^3/uL Red Blood Count 3.72 L 3.80-5.11 10^6/uL Hemoglobin 12.4 11.5-16.0 g/dL Hematocrit 35 35-52 % Mean Corpuscular Volume 94 80-99 fL Mean Corpuscular Hemoglobin 33 25-34 pg Mean Corpuscular Hemoglobin Concent 36 32-36 g/dL Red Cell Distribution Width 12.4 10.0-14.5 % Platelet Count 220 130-400 10^3/uL Mean Platelet Volume 9.3 9.0-12.2 fL Immature Granulocyte % (Auto) 0 % Neutrophils (%) (Auto) 74 42-75 % Lymphocytes (%) (Auto) 16 12-44 % Monocytes (%) (Auto) 9 0-12 % Eosinophils (%) (Auto) 1 0-10 % Basophils (%) (Auto) 0 0-10 % Neutrophils # (Auto) 5.9 1.8-7.8 10^3/uL Lymphocytes # (Auto) 1.3 1.0-4.0 10^3/uL Monocytes # (Auto) 0.7 0.0-1.0 10^3/uL Eosinophils # (Auto) 0.1 0.0-0.3 10^3/uL Basophils # (Auto) 0.0 0.0-0.1 10^3/uL Immature Granulocyte # (Auto) 0.0 0.0-0.1 10^3/uL Sodium Level 136 135-145 MMOL/L Potassium Level 4.1 3.6-5.0 MMOL/L Chloride Level 104 98-107 MMOL/L Carbon Dioxide Level 22 21-32 MMOL/L Anion Gap 10 5-14 MMOL/L Blood Urea Nitrogen 6 L 7-18 MG/DL Creatinine 0.53 L 0.60-1.30 MG/DL Estimat Glomerular Filtration Rate 125 BUN/Creatinine Ratio 11 Glucose Level 99 70-105 MG/DL Calcium Level 9.2 8.5-10.1 MG/DL Corrected Calcium 9.2 8.5-10.1 MG/DL Total Bilirubin 0.4 0.1-1.0 MG/DL Aspartate Amino Transf (AST/SGOT) 10 5-34 U/L Alanine Aminotransferase (ALT/SGPT) 7 0-55 U/L Alkaline Phosphatase 62 40-136 U/L Total Protein 6.6 6.4-8.2 GM/DL Albumin 4.0 3.2-4.5 GM/DL Human Chorionic Gonadotropin, Quant [id number] H <5 MIU/ML My Orders Orders - HALLEY WHITE DO Ua Culture If Indicated (01/02/22 20:30) Cbc With Automated Diff (01/02/22 20:40) Comprehensive Metabolic Panel (01/02/22 20:40) Hcg,Quantitative (01/02/22 20:40) Neisseria Gonorrhea Swab (01/02/22 20:40) Ed Iv/Invasive Line Start (01/02/22 20:48) Vital Signs/I&O 01/02/22 20:15 Temp 36.7 Pulse 103 Resp 16 B/P (MAP) 116/71 (86) Pulse Ox 99 O2 Delivery Room Air Capillary Refill : Less Than 3 Seconds Blood Pressure Mean: 86 Departure Communication (Admissions) Exam history consistent with bacterial vaginosis. Ectopic considered. Ultrasound is not available at this facility. However, I did offer to refer The Patient to [facility] for an Ultrasound This Evening Which She Declined. She Prefers to Follow-Up with PCP for Ultrasound in the Office Tomorrow. Return Precautions Reviewed. Patient Verbalizes Understanding Agreement Discharge Instructions and will be discharged home per her request. Impression Primary Impression: Pelvic pain affecting Additional Impression: Bacterial vaginosis Disposition: HOME, SELF-CARE Condition: Stable Departure-Patient Inst. Decision time for Depature: 21:55 Referrals: HAIDER NUNN MD (PCP) Primary Care Physician INDERJIT SCHWARTZ APRN (Family) Primary Care Physician Patient Instructions: Bacterial Vaginosis ED Add. Discharge Instructions: You were evaluated in the emergency department for pelvic pain and . The exact cause has not been determined but may be related to a bacterial infection. Please take antibiotics as directed and follow-up with your PCP tomorrow to confirm the presence of an intrauterine . Take Tylenol for pain. If you develop new or worsening symptoms, return to the ED. All discharge instructions reviewed with patient and/or family. Voiced understanding. Scripts Metronidazole (Metrogel) 1 % Gel..gram. 60 GM TP BID, #14 EA Prov: HALLEY WHITE DO 01/02/22 Work/School Note: Work Release Form Date Seen in the Emergency Department: January 02, 2022 Return to Work: January 04, 2022 Restrictions: No Restrictions HALLEY WHITE DO January 02, 2022 21:54
[2022-01-02] MEDS ORDERED: METR60GE TP (21:58)
[2022-01-02 22:01] VITALS: BP 110/76
== END 2022-01-02 22:11 | disposition home or self-care (01) ==
LOC: EDUNIT# 20:12 → ER FS 20:13
DX: O23.591 Infection of other part of genital tract in pregnancy, first trimester (principal); B96.89 Other specified bacterial agents as the cause of diseases classified elsewhere; Z3A.01 Less than 8 weeks gestation of pregnancy
CPT/HCPCS: 36415; 80053; 81000; 84702; 85025; 87591

== ENCOUNTER 2022-07-03 16:22 | Observation (INO) | payer OTHER ==
[~2022-07-03] VITALS: Ht 168 cm; Wt 74.1 kg
[~2022-07-03 16:22] MED LIST changes: +METR60GE TP
[2022-07-03] MEDS ORDERED: TERBUTALINE INJ 1 MG/ML (BRETHINE) AMP SC ONE ×2 (17:00→18:45)
[2022-07-03] MEDS ORDERED: LACTATED RINGERS 1,000 ML IV ONE (17:00)
[2022-07-03 17:10] LABS: BASOPHILS % (AUTO) 0 % (0-10); EOSINOPHILS # (AUTO) 0.1 10^3/uL (0.0-0.3); EOSINOPHILS % (AUTO) 1 % (0-10); HEMATOCRIT 32 % (35-52); HEMOGLOBIN 10.8 g/dL (11.5-16.0); LYMPHOCYTES # (AUTO) 1.8 10^3/uL (1.0-4.0); LYMPHOCYTES % (AUTO) 16 % (12-44); MEAN CORPUSCULAR HEMOGLOBIN 34 pg (25-34); MEAN CORPUSCULAR HGB CONC 34 g/dL (32-36); MEAN CORPUSCULAR VOLUME 99 fL (80-99); MEAN PLATELET VOLUME 9.4 fL (9.0-12.2); MONOCYTES # (AUTO) 1.3 10^3/uL (0.0-1.0); MONOCYTES % (AUTO) 11 % (0-12); NEUTROPHILS % (AUTO) 71 % (42-75); PLATELET COUNT 264 10^3/uL (130-400); WHITE BLOOD COUNT 11.2 10^3/uL (4.3-11.0)
[2022-07-03 17:11] LABS: BILIRUBIN,URINE NEGATIVE (NEGATIVE); CLARITY,URINE CLEAR; COLOR,URINE YELLOW; GLUCOSE, URINE (UA) NEGATIVE (NEGATIVE); KETONES,URINE NEGATIVE (NEGATIVE); LEUKOCYTE ESTERASE ,URINE TRACE (NEGATIVE); NITRITE,URINE NEGATIVE (NEGATIVE); PH,URINE 6.5 (5-9); PROTEIN,URINE NEGATIVE (NEGATIVE)
[2022-07-03 17:16] LABS: BACTERIA,URINE NEGATIVE /HPF; SQUAMOUS EPITHELIAL CELL,UR 0-2 /HPF
[2022-07-03] MEDS: BETAMETHASONE ACE/NA PHOS 6 MG/ML (CELESTONE SOLUSPAN) IM SCH (17:21)
[2022-07-03 17:22] LABS: AMPHETAMINE SCREEN, URINE NEGATIVE (NEGATIVE); BARBITURATE SCREEN URINE NEGATIVE (NEGATIVE); BENZODIAZEPINES SCREEN URINE NEGATIVE (NEGATIVE); CANNABINOID SCREEN, URINE NEGATIVE (NEGATIVE); COCAINE SCREEN URINE NEGATIVE (NEGATIVE); METHADONE STAT NEGATIVE (NEGATIVE); OPIATE SCREEN URINE NEGATIVE (NEGATIVE); OXYCODONE STAT NEGATIVE (NEGATIVE); PROPOXYPHENE STAT NEGATIVE (NEGATIVE); TRICYCLIC ANTIDEPRESSANTS SCRE NEGATIVE (NEGATIVE)
[2022-07-03 17:39] VITALS: BP 129/78
[2022-07-03 18:03] LABS: BAND NEUTROPHILS 2 %; BASOPHILS % (MANUAL) 0 %; EOSINOPHILS % (MANUAL) 0 %; LYMPHOCYTES % (MANUAL) 15 %; MONOCYTES % (MANUAL) 8 %; NEUTROPHILS % (MANUAL) 75 %; RBC MORPH NORMAL
[2022-07-03] MEDS: LACTATED RINGERS 1,000 ML IV SCH (18:17)
[2022-07-03] MEDS ORDERED: TERBUTALINE INJ 1 MG/ML (BRETHINE) AMP ONE (18:53)
[2022-07-03 19:30] VITALS: BP 109/56
[2022-07-03] MEDS ORDERED: ACETAMINOPHEN 500 MG TAB (TYLENOL) ONE (20:47)
[2022-07-03] MEDS: ACETAMINOPHEN 500 MG TAB (TYLENOL) PO PRN (20:51)
[2022-07-04] MEDS: LACTATED RINGERS 1,000 ML IV SCH ×2 (01:49→09:50)
[2022-07-04] MEDS: ACETAMINOPHEN 500 MG TAB (TYLENOL) PO PRN ×2 (04:46→12:31)
[2022-07-04 04:50] VITALS: BP 95/53
[2022-07-04 11:50] VITALS: BP 97/50
[2022-07-04] MEDS ORDERED: PNV11TAB5 PO (13:49)
--- NOTE | 2022-07-04 13:50 | Short Stay Summary ---
History of Present Illness History of Present Illness Reason for visit/HPI at 33w0d today- Pt went to clinic yesterday after being instructed to come in by Dr. 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 She saw Dr. Kenney in the office on 07/03 and was having some contractions on the monitor, so she was sent to the hospital for further eval. She states she continued to have contractions for a period of time, but is not any longer. She did have contractions with her previous but ultimately delivered at 37 weeks. Date of Admission Jul 03, 2022 at 18:34 Date of Discharge Jul 04, 2022 Time Seen by Provider: 08:10 Attending Physician [facility] Admitting Physician Admitting Physician: Susan Kenney MD Attending Physician: Felipe May MD Consult Allergies and Home Medications Allergies Coded Allergies: Penicillins (Verified Allergy, Unknown, 01/21/19) Patient Home Medication List Home Medication List Reviewed: Yes [id number]/Omega3/Dha/Fish Oil ( Gummies) 400 Mcg-32.5 Mg (25 Mg-7.5 Mg) Tab.chew, 1 EACH PO DAILY, (Reported) Entered as Reported by: FELIPE MAY on 07/04/22 1349 Last Action: New Order Discontinued Medications Ciprofloxacin HCl (Ciprofloxacin HCl) 500 Mg Tablet, 500 MG PO BID Prescribed by: SHEFALI WILSON on 01/21/19 1003 Last Action: Discontinued Doxycycline Hyclate (Doxycycline Hyclate) 100 Mg Tablet, 100 MG PO BID Prescribed by: THOMAS SHAVER on 04/07/21 0958 Last Action: Discontinued Metronidazole (Metrogel) 1 % Gel..gram., 60 GM TP BID Prescribed by: HALLEY WHITE on 01/02/22 2158 Last Action: Discontinued Ondansetron (Ondansetron Odt) 4 Mg Tab.rapdis, 4 MG PO Q6H Prescribed by: HALLEY WHITE on 01/02/22 0940 Last Action: Discontinued Valacyclovir HCl (Valacyclovir) 1,000 Mg Tablet, 1,000 MG PO TID Prescribed by: SIENNA HUGHES on 06/15/19 2254 Last Action: Discontinued Past Cubctsf-Tcuiem-Wszbbj Hx Patient Social History Number of Children: 1 Number of living children: 1 Smoking Status: Never a Smoker 2nd Hand Smoke Exposure: No Recent Hopitalizations: No Seasonal Allergies Seasonal Allergies: Yes Surgeries Yes (knee surgery) Adenoidectomy, Gallbladder, Tonsillectomy Respiratory No Cardiovascular No Neurological No Reproductive System : Yes Expected Date of Delivery: Aug 22, 2022 Hx : 2 Hx Para: 1 Hx Total # of Abortions (Spona: 0 Genitourinary No Gastrointestinal No Musculoskeletal No Endocrine History of Endocrine Disorders: No HEENT History of HEENT Disorders: No Cancer No Psychosocial History of Psychiatric Problem: No Family Medical History Significant Family History: Heart Disease, Cancer (maternal and paternal grandmother- breast cancer; uncle- colon cancer, grandfather- kidney/pancreas) Review of Systems Constitutional: No fever EENTM: No nose congestion Respiratory: No cough, No short of breath Cardiovascular: No chest pain Gastrointestinal: No abdominal pain, No constipation, No diarrhea, No nausea, No vomiting Genitourinary: No dysuria Musculoskeletal: No joint pain Skin: No rash Physical Exam Vital Signs Vital Signs - First Documented 07/03/22 17:39 Temp 36.2 Pulse 83 Resp 16 B/P (MAP) 129/78 Pulse Ox 99 O2 Delivery Room Air Capillary Refill : Less Than 3 Seconds Height, Weight, BMI Height: 5'6.00" Weight: 125lbs. oz. 56.854519ux; 26.25 BMI Method:Stated General Appearance: No Apparent Distress, WD/WN HEENT: Other (poor dentition with multiple partial teeth with caries along central maxilla) Respiratory: Lungs Clear, Normal Breath Sounds Cardiovascular: Regular Rate, Rhythm, Systolic Murmur Gastrointestinal: Other (gravid, fundus nontender) Extremity: No Pedal Edema Neurologic/Psychiatric: Alert, Normal Mood/Affect Skin: Normal Color, Warm/Dry Short Stay Diagnosis Discharge Diagnosis-Short Stay Admission Diagnosis: contractions Final Discharge Diagnosis: contractions Conclusion Labs Laboratory Tests 07/03/22 16:30: Urine Color YELLOW, Urine Clarity CLEAR, Urine pH 6.5, Urine Specific [place] 1.010L, Urine Protein NEGATIVE, Urine Glucose (UA) NEGATIVE, Urine Ketones NEGATIVE, Urine Nitrite NEGATIVE, Urine Bilirubin NEGATIVE, Urine Urobilinogen 0.2, Urine Leukocyte Esterase TRACEH, Urine RBC (Auto) NEGATIVE, Urine RBC NONE, Urine WBC NONE, Urine Squamous Epithelial Cells 0-2, Urine Crystals NONE, Urine Bacteria NEGATIVE, Urine Casts NONE, Urine Mucus NEGATIVE, Urine Culture Indicated NO, Urine Opiates Screen NEGATIVE, Urine Oxycodone Screen NEGATIVE, Urine Methadone Screen NEGATIVE, Urine Propoxyphene Screen NEGATIVE, Urine Barbiturates Screen NEGATIVE, Ur Tricyclic Antidepressants Screen NEGATIVE, Urine Phencyclidine Screen NEGATIVE, Urine Amphetamines Screen NEGATIVE, Urine Methamphetamines Screen NEGATIVE, Urine Benzodiazepines Screen NEGATIVE, Urine Cocaine Screen NEGATIVE, Urine Cannabinoids Screen NEGATIVE 07/03/22 16:40: White Blood Count 11.2H, Red Blood Count 3.20L, Hemoglobin 10.8L, Hematocrit 32L , Mean Corpuscular Volume 99, Mean Corpuscular Hemoglobin 34, Mean Corpuscular Hemoglobin Concent 34, Red Cell Distribution Width 12.8, Platelet Count 264, Mean Platelet Volume 9.4, Immature Granulocyte % (Auto) 1, Neutrophils (%) (Auto) 71, Lymphocytes (%) (Auto) 16, Monocytes (%) (Auto) 11, Eosinophils (%) (Auto) 1, Basophils (%) (Auto) 0, Neutrophils # (Auto) 8.0H, Lymphocytes # (Auto) 1.8, Monocytes # (Auto) 1.3H, Eosinophils # (Auto) 0.1, Basophils # (Auto) 0.0, Immature Granulocyte # (Auto) 0.1, Neutrophils % (Manual) 75, Lymphocytes % (Manual) 15, Monocytes % (Manual) 8, Eosinophils % (Manual) 0, Basophils % (Manual) 0, Band Neutrophils 2, Blood Morphology Comment NORMAL Conclusion/Plan Pt was admitted for observation due to persistent contractions which did improve with terbutaline and IVF. She received betamethasone first dose and was monitored overnight and through the next day with no significant contraction patterns noted. She had an US and cervix was somewhat difficult to see, but estimated length was 3 cm. She had her second dose of betamethasone and was discharged to home with labor precautions. FELIPE MAY MD Jul 04, 2022 13:50
--- NOTE | 2022-07-04 15:35 | Diagnostic Imaging Report ---
US LIMITED [id number] INDICATION: Evaluate cervical length. COMPARISON: None available. TECHNIQUE: Limited transabdominal sonographic imaging of the gravid uterus. FINDINGS: Single live intrauterine is in cephalic presentation. The CORBY is 9 cm. Placenta is anterior in position and there is no previa. The tip of the cervix is 11 cm from the internal cervical os. Cervix is not well seen but measures approximately 3 cm in length. heart rate is 142 bpm. IMPRESSION: 1. Cervix is not well seen due to obscuration by fetus head in cephalic presentation. Estimated cervical length is approximately 3 cm. Dictated by: Dictated on workstation # [id number]
[2022-07-04 15:54] VITALS: BP 95/52
[2022-07-04] MEDS: BETAMETHASONE ACE/NA PHOS 6 MG/ML (CELESTONE SOLUSPAN) IM SCH (17:44)
[2022-07-04 17:50] VITALS: BP 95/52
== END 2022-07-04 18:05 | disposition home or self-care (01) ==
LOC: LDRP 16:22 → WSo 16:22 → LDRP 18:34
PROVIDERS: ADMIT Family Medicine; ATTEND Family Medicine
DX: O47.03 False labor before 37 completed weeks of gestation, third trimester (principal); Z3A.33 33 weeks gestation of pregnancy
CPT/HCPCS: 76815; 80306; 81000; 85007; 85027; 96360; 96361 ×2; 96372 ×2; G0378; G0379; 36415

== ENCOUNTER 2022-08-15 15:59 | Inpatient (IN) | payer OTHER ==
[~2022-08-15] VITALS: Ht 167.7 cm; Wt 76.7 kg
[2022-08-15] VITALS (15 sets, daily range): BP systolic 107–137; BP diastolic 69–82
[~2022-08-15 15:59] MED LIST changes: +PNV11TAB5 PO
[2022-08-15 16:33] LABS: BILIRUBIN,URINE NEGATIVE (NEGATIVE); CLARITY,URINE SL CLOUDY; COLOR,URINE YELLOW; GLUCOSE, URINE (UA) NEGATIVE (NEGATIVE); KETONES,URINE NEGATIVE (NEGATIVE); LEUKOCYTE ESTERASE ,URINE TRACE (NEGATIVE); NITRITE,URINE NEGATIVE (NEGATIVE); PROTEIN,URINE NEGATIVE (NEGATIVE)
[2022-08-15 16:40] LABS: BACTERIA,URINE NEGATIVE /HPF; SQUAMOUS EPITHELIAL CELL,UR 0-2 /HPF
[2022-08-15] MEDS ORDERED: LIDOCAINE 1% INJ 20 ML VIAL IJ PRN (17:00)
[2022-08-15] MEDS ORDERED: MINERAL OIL 30 ML UDC TOP PRN (17:00)
[2022-08-15 17:02] LABS: BASOPHILS % (AUTO) 0 % (0-10); EOSINOPHILS # (AUTO) 0.1 10^3/uL (0.0-0.3); EOSINOPHILS % (AUTO) 1 % (0-10); HEMATOCRIT 32 % (35-52); HEMOGLOBIN 10.6 g/dL (11.5-16.0); LYMPHOCYTES # (AUTO) 1.7 10^3/uL (1.0-4.0); LYMPHOCYTES % (AUTO) 16 % (12-44); MEAN CORPUSCULAR HEMOGLOBIN 33 pg (25-34); MEAN CORPUSCULAR HGB CONC 33 g/dL (32-36); MEAN CORPUSCULAR VOLUME 98 fL (80-99); MONOCYTES # (AUTO) 1.3 10^3/uL (0.0-1.0); MONOCYTES % (AUTO) 12 % (0-12); NEUTROPHILS # (AUTO) 7.3 10^3/uL (1.8-7.8); NEUTROPHILS % (AUTO) 70 % (42-75); PLATELET COUNT 285 10^3/uL (130-400); WHITE BLOOD COUNT 10.4 10^3/uL (4.3-11.0)
[2022-08-15] MEDS: D5 LR IV SOLUTION 1,000 ML IV SCH (17:23)
[2022-08-15] MEDS ORDERED: OXYTOCIN PRE-MIX DRIP 500 ML IV ONE (20:55)
[2022-08-15] MEDS ORDERED: OXYTOCIN PRE-MIX DRIP 500 ML IV SCH (21:00)
[2022-08-15] MEDS ORDERED: fentaNYL 2 mcg/ml BUPIVA 0.125 100 ML ONE (21:09)
[2022-08-15] MEDS ORDERED: fentaNYL INJ 100 MCG/2 ML AMP ONE (21:45)
[2022-08-15] MEDS ORDERED: LIDOCAINE PF 2% 5 ML (XYLOCAINE) VIAL ONE (21:45)
[2022-08-15] MEDS ORDERED: CATHETER FLUSH 10 ML SYR IV SCH (22:00)
[2022-08-15] MEDS ORDERED: fentaNYL 2 mcg/ml BUPIVA 0.125 100 ML EPI SCH (22:15)
[2022-08-15] MEDS ORDERED: LACTATED RINGERS 1,000 ML IV SCH (22:15)
[2022-08-15] MEDS ORDERED: NALOXONE 0.4 MG/ML 1 ML (NARCAN) VIAL IV PRN ×2 (22:15)
[2022-08-15] MEDS ORDERED: METOCLOPRAMIDE INJ 10 MG/2 ML (REGLAN) IV PRN (22:15)
[2022-08-15] MEDS ORDERED: diphenhydrAMINE 50 MG/ML INJ (BENADRYL) IV PRN (22:15)
[2022-08-15] MEDS ORDERED: ONDANSETRON 4 MG/2 ML (SDV) Z0FRAN IV PRN (22:15)
[2022-08-16] VITALS (19 sets, daily range): BP systolic 98–136; BP diastolic 60–75
[2022-08-16] MEDS: D5 LR IV SOLUTION 1,000 ML IV SCH (01:23)
[2022-08-16] MEDS: OXYTOCIN PRE-MIX DRIP 500 ML IV SCH ×2 (02:30→02:52)
--- NOTE | 2022-08-16 04:09 | History & Physical-OB ---
OB - Chief Complaint & HPI Date/Time Date of Admission: Date of Admission: Aug 15, 2022 at 16:50 Date seen by a Provider: Aug 16, 2022 Time Seen by a Provider: 02:10 Chief Complaint/History OB-Reason for Admission/Chief: Onset of Labor Hx : 2 Hx Para: 1 Expected Date of Delivery: Aug 22, 2022 Gestational Age in Weeks: 39 Gestational Age in Days: 1 Other reason for admission: Contractions started yesterday around noon and she had SROM clear 1520. History of Labs O+, Ab neg, Rub Imm HIV/RPR/HepB/C NR Normal 1 hr GTT GBS neg Allergies and Home Medications Allergies Coded Allergies: Penicillins (Verified Allergy, Unknown, 01/21/19) Patient Home Medication List Home Medication List Reviewed: Yes [id number]/FA/Omega3/Dha/Fish Oil ( Gummies) 400 Mcg-32.5 Mg (25 Mg-7.5 Mg) Tab.chew, 1 EACH PO DAILY, (Reported) Entered as Reported by: FELIPE MAY on 07/04/22 1349 OB - History Hx of Present Care: Yes Ultrasounds: Normal mid trimester US Obstetrical Complications: None Medical Complications: None Obstetrical History Hx : 2 Hx Para: 1 Hx # Term Pregnancies: 1 Number of Living Children: 1 Patient Past Medical History Peridontal disease Social History/Family History Alcohol Use: Denies Use Recreational Drug Use: No Smoking Cessation: Former smoker 2nd Hand Smoke Exposure: No Immunizations Influenza Vaccine Up-to-Date: Yes; Up-to-Date Hepatitis A: No Hepatitis B: No Tetanus Booster (TDap): Less than 5yrs (06/07/22) Rubella: immune RPR/VDRL: Negative GBS Status: Negative HBsAG: Negative OB - Admission Exam Physical Exam Vitals: Vital Signs 08/15/22 08/16/22 08/16/22 20:11 00:25 02:53 Temp 36.6 Pulse 80 Resp 16 B/P (MAP) 124/61 (82) Pulse Ox 99 O2 Delivery Room Air HEENT: NCAT Heart: Rhythm Normal Lungs: Clear Abdomen: Gravid Cervical Dilatation: 10cm Effacement: 100% Station: +1 Membranes: Ruptured Amniotic Fluid: Clear Heart Rate: 130's Accelerations: Accelerations Present Decelerations: Variable Decelerations Short Term Variability: Present Rfid Manager Variability: Average (6-25) Contractions on Admission: < 5 Minutes Apart Intensity: Firm Labs Laboratory Tests Test 08/15/22 15:16 08/15/22 16:50 Range/Units Urine Color YELLOW Urine Clarity SL CLOUDY Urine pH 7.0 5-9 Urine Specific [place] 1.020 1.016-1.022 Urine Protein NEGATIVE NEGATIVE Urine Glucose (UA) NEGATIVE NEGATIVE Urine Ketones NEGATIVE NEGATIVE Urine Nitrite NEGATIVE NEGATIVE Urine Bilirubin NEGATIVE NEGATIVE Urine Urobilinogen 0.2 < = 1.0 MG/DL Urine Leukocyte Esterase TRACE H NEGATIVE Urine RBC (Auto) NEGATIVE NEGATIVE Urine RBC NONE /HPF Urine WBC NONE /HPF Urine Squamous Epithelial Cells 0-2 /HPF Urine Renal Epithelial Cells NONE /HPF Urine Crystals NONE /LPF Urine Bacteria NEGATIVE /HPF Urine Casts NONE /LPF Urine Mucus NEGATIVE /LPF Urine Culture Indicated NO White Blood Count 10.4 4.3-11.0 10^3/uL Red Blood Count 3.25 L 3.80-5.11 10^6/uL Hemoglobin 10.6 L 11.5-16.0 g/dL Hematocrit 32 L 35-52 % Mean Corpuscular Volume 98 80-99 fL Mean Corpuscular Hemoglobin 33 25-34 pg Mean Corpuscular Hemoglobin Concent 33 32-36 g/dL Red Cell Distribution Width 13.4 10.0-14.5 % Platelet Count 285 130-400 10^3/uL Mean Platelet Volume 10.0 9.0-12.2 fL Immature Granulocyte % (Auto) 1 % Neutrophils (%) (Auto) 70 42-75 % Lymphocytes (%) (Auto) 16 12-44 % Monocytes (%) (Auto) 12 0-12 % Eosinophils (%) (Auto) 1 0-10 % Basophils (%) (Auto) 0 0-10 % Neutrophils # (Auto) 7.3 1.8-7.8 10^3/uL Lymphocytes # (Auto) 1.7 1.0-4.0 10^3/uL Monocytes # (Auto) 1.3 H 0.0-1.0 10^3/uL Eosinophils # (Auto) 0.1 0.0-0.3 10^3/uL Basophils # (Auto) 0.0 0.0-0.1 10^3/uL Immature Granulocyte # (Auto) 0.1 0.0-0.1 10^3/uL OB - Assessment/Plan/Diagnosis Assessment Assessment: active labor, rupture of membranes Admission Dx Third Trimester 39 week gestation SROM Admission Status: Inpatient Order (span 2 midnights) Reason for Inpatient Admission: labor and post care Plan Other Plan 32 yo @ 39.2 wga here in active labor Plan - Expectant management - Desires Epidural for pain control Copy Copies To 1: JOHN COWART MD, HOLLY R MD Aug 16, 2022 04:09
[2022-08-16] MEDS ORDERED: BENZOCAINE/MENTHOL (DERMOPLAST) 56 ML CAN TP PRN (04:15)
[2022-08-16] MEDS ORDERED: MEASLES,MUMPS,RUBELLA 1 EA INJ SQ ONE (04:15)
[2022-08-16] MEDS ORDERED: TETANUS,DIPTH,PERTUSS P/F (BOOSTRIX) 0.5 ML VIAL IM ONE (04:15)
[2022-08-16] MEDS ORDERED: WITCH HAZEL(TUCKS) 40 EA JAR TOP PRN (04:15)
--- NOTE | 2022-08-16 04:17 | OB Labor & Delivery Record ---
Vag Delivery Note Vag Delivery Note Date of Delivery: 08/16/22 Preoperative Diagnosis: Zenia Goldsmith is a (32 /Para / ,Gestational Age (wks)39.2 wga here in active labor Postoperative Diagnosis: Same Surgeon: JOHN COWART MD Pest Controller Assistant: None Anesthesia: Epidural Delivery Type: @ 0248 Findings: Viable female , apgars 7/9, weight 7#0, 3180 grams Lacerations: bilateral periurethral laceration and perineal skin tear Intact placenta with 3 vessel cord. No nuchal cord, body cord or shoulder dystocia Estimated Blood Loss: 125 ml Complications: None Condition: Stable Description of Procedure: The patient is a 32 year old female who presented in active labor. She was admitted and informed consent was obtained. Her labor course was remarkable pitocin augmentation. She progressed to complete dilatation and began to push. She was then set up for delivery. The 's head was delivered atraumatically in the AALIYAH position. The shoulders and remainder of the infant's body were then delivered without difficulty. Upon delivery, the head was held below the level of the perineum and the mouth and nares were bulb suctioned. The cord was doubly clamped and cut by friend of patient after 2 min delay and the infant was attended to by the pediatric staff on maternal abdomen. An intact placenta with 3-vessel cord delivered via Estefany and there was found to be minimal bleeding.~ Vigorous fundal massage was performed and the fundus was found to be firm. IV oxytocin was given. Examination of the vagina and perineum revealed bilateral periurtheral lacerations and midline skin tear repaired in the usual fashion with 3-0 vicryl suture. Following the repair, sponge, instrument and needle counts were correct. Mom and baby were both in stable condition in the labor suite. Vitals - Labs Vital Signs - I&O Vital Signs Date Time Temp Pulse Resp B/P (MAP) Pulse Ox O2 Delivery O2 Flow Rate FiO2 08/16/22 02:53 80 16 124/61 (82) Room Air 08/16/22 02:40 111 16 117/74 (88) Room Air 08/16/22 02:23 87 16 120/73 (89) Room Air 08/16/22 02:08 78 16 117/74 (88) Room Air 08/16/22 01:40 69 16 110/70 (83) Room Air 08/16/22 01:08 72 16 98/60 (73) Room Air 08/16/22 01:05 71 16 101/62 (75) Room Air 08/16/22 00:40 85 16 113/70 (84) Room Air 08/16/22 00:25 106 16 122/75 (91) 99 Room Air 08/15/22 23:54 81 16 117/76 (90) 98 Room Air 08/15/22 23:39 77 16 118/77 (91) 99 Room Air 08/15/22 23:22 80 16 107/69 (82) 98 Room Air 08/15/22 23:08 70 16 117/71 (86) 98 Room Air 08/15/22 22:55 71 16 119/74 (89) 98 Room Air 08/15/22 22:40 75 16 117/74 (88) 98 Room Air 08/15/22 22:22 125 16 125/71 (89) 99 Room Air 08/15/22 22:17 86 16 120/72 (88) 97 Room Air 08/15/22 22:13 81 16 112/70 (84) 99 Room Air 08/15/22 22:07 88 16 117/71 (86) 98 Room Air 08/15/22 22:01 78 16 123/75 (91) 99 Room Air 08/15/22 21:57 90 16 125/72 (89) 99 Room Air 08/15/22 21:11 83 16 116/80 (92) Room Air 08/15/22 20:11 36.6 90 16 116/81 (93) Room Air 08/15/22 17:12 36.6 90 18 97 Room Air I & O 08/16/22 07:00 Intake Total 1000 ml Balance 1000 ml Labs Laboratory Tests 08/15/22 15:16: Urine Color YELLOW, Urine Clarity SL CLOUDY, Urine pH 7.0, Urine Specific [place] 1.020, Urine Protein NEGATIVE, Urine Glucose (UA) NEGATIVE, Urine Ketones NEGATIVE, Urine Nitrite NEGATIVE, Urine Bilirubin NEGATIVE, Urine Urobilinogen 0.2, Urine Leukocyte Esterase TRACEH, Urine RBC (Auto) NEGATIVE, Urine RBC NONE, Urine WBC NONE, Urine Squamous Epithelial Cells 0-2, Urine Renal Epithelial Cells NONE, Urine Crystals NONE, Urine Bacteria NEGATIVE, Urine Casts NONE, Urine Mucus NEGATIVE, Urine Culture Indicated NO 08/15/22 16:50: White Blood Count 10.4, Red Blood Count 3.25L, Hemoglobin 10.6L, Hematocrit 32L, Mean Corpuscular Volume 98, Mean Corpuscular Hemoglobin 33, Mean Corpuscular Hemoglobin Concent 33, Red Cell Distribution Width 13.4, Platelet Count 285, Mean Platelet Volume 10.0, Immature Granulocyte % (Auto) 1, Neutrophils (%) (Auto) 70, Lymphocytes (%) (Auto) 16, Monocytes (%) (Auto) 12, Eosinophils (%) (Auto) 1, Basophils (%) (Auto) 0, Neutrophils # (Auto) 7.3, Lymphocytes # (Auto) 1.7, Monocytes # (Auto) 1.3H, Eosinophils # (Auto) 0.1, Basophils # (Auto) 0.0, Immature Granulocyte # (Auto) 0.1 JOHN COWART MD Aug 16, 2022 04:17
[2022-08-16] MEDS ORDERED: IBUPROFEN 600 MG (MOTRIN) TAB PO ONE (04:53)
[2022-08-16] MEDS ORDERED: ACETAMINOPHEN 500 MG TAB (TYLENOL) ONE (04:53)
[2022-08-16] MEDS: ACETAMINOPHEN 500 MG TAB (TYLENOL) PO SCH ×3 (04:54→18:18)
[2022-08-16] MEDS: IBUPROFEN 600 MG (MOTRIN) TAB PO SCH ×3 (04:55→18:18)
[2022-08-16] MEDS ORDERED: CATHETER FLUSH 10 ML SYR IV SCH (06:00)
--- NOTE | 2022-08-16 09:04 | Anesthesia-Regional Post-Op ---
Regional Patient Condition Mental Status: Alert, Oriented x3 Circulation: Same as Pre-Op Headache: Absent Sensation: Full Recovery Motor Block: Absent Post Op Complications Complications None Follow Up Care/Instructions Patient Instructions None needed. Anesthesia/Patient Condition Patient is doing well, no complaints, stable vital signs, no apparent adverse anesthesia problems. No complications reported per nursing. DEBORAH OSHEA CRNA Aug 16, 2022 09:04
[2022-08-16] MEDS: DOCUSATE SODIUM 100 MG (COLACE) CAP PO SCH ×2 (11:33→20:54)
[2022-08-17] MEDS: ACETAMINOPHEN 500 MG TAB (TYLENOL) PO SCH ×3 (00:09→11:57)
[2022-08-17] MEDS: IBUPROFEN 600 MG (MOTRIN) TAB PO SCH ×3 (00:09→11:57)
[2022-08-17 00:10] VITALS: BP 115/62
[2022-08-17 03:05] VITALS: BP 110/60
[2022-08-17 06:19] LABS: BASOPHILS % (AUTO) 0 % (0-10); EOSINOPHILS # (AUTO) 0.1 10^3/uL (0.0-0.3); EOSINOPHILS % (AUTO) 1 % (0-10); HEMATOCRIT 27 % (35-52); HEMOGLOBIN 9.1 g/dL (11.5-16.0); LYMPHOCYTES # (AUTO) 1.7 10^3/uL (1.0-4.0); LYMPHOCYTES % (AUTO) 15 % (12-44); MEAN CORPUSCULAR HEMOGLOBIN 33 pg (25-34); MEAN CORPUSCULAR HGB CONC 34 g/dL (32-36); MEAN CORPUSCULAR VOLUME 98 fL (80-99); MEAN PLATELET VOLUME 10.2 fL (9.0-12.2); MONOCYTES # (AUTO) 1.1 10^3/uL (0.0-1.0); MONOCYTES % (AUTO) 10 % (0-12); NEUTROPHILS # (AUTO) 7.9 10^3/uL (1.8-7.8); NEUTROPHILS % (AUTO) 72 % (42-75); PLATELET COUNT 252 10^3/uL (130-400); WHITE BLOOD COUNT 10.9 10^3/uL (4.3-11.0)
--- NOTE | 2022-08-17 10:43 | Discharge Summary ---
Diagnosis/Chief Complaint Date of Admission Aug 15, 2022 at 16:50 Date of Discharge 08/17/22 Admission Diagnosis Admission Diagnosis Third Trimester 39 week gestation Discharge Diagnosis Term Uncomplicated 39 completed weeks gestation Anemia of acute blood loss Discharge Summary-Simple/Stand Procedures epidural placement Uncomplicated Discharge Physical Examination Allergies: Coded Allergies: Penicillins (Verified Allergy, Unknown, 01/21/19) Vitals & I&Os Vital Sign - Last 12Hours Date Time Temp Pulse Resp B/P (MAP) Pulse Ox O2 Delivery O2 Flow Rate FiO2 08/17/22 03:05 36.6 80 16 110/60 (77) 97 Room Air General Appearance: Alert, Oriented X3, No Acute Distress Respiratory: Clear to Auscultation, Normal Air Movement Cardiovascular: Regular Rate, No Murmurs Abdominal: Normal Bowel Sounds, Soft, No Tenderness, No Masses, Other (Firm fundus below umbilicus) Extremities: No Edema, No Tenderness/Swelling Neuro: Normal Speech Psych/Mental Status: Mental Status NL, Mood NL Hospital Course Was the Problem List Reviewed?: Yes See final discharge diagnosis. Discussion & Recommendations 32 yo G2 now P2 delivered female infant via @ 39 weeks gestation Discharge Condition at discharge stable Instructions to patient/family Please see electronic discharge instructions given to patient. Discharge Medications Reviewed and agree with Discharge Medication list on patient's Discharge Instruction sheet JOHN COWART MD Aug 17, 2022 10:43
[2022-08-17] MEDS ORDERED: IBUP-844 PO (10:45)
[2022-08-17] MEDS ORDERED: FERR-65 PO (10:45)
[2022-08-17] MEDS ORDERED: DOCU100C37 PO (10:45)
--- NOTE | 2022-08-17 10:45 | Discharge Summary ---
Discharge Inst-[facility] Reconcile Patient Problems Problems Reviewed?: Yes Depart Medications New, Converted or Re-Newed RX: Transmitted to Pharmacy New Medications: Ferrous Sulfate (Feosol) 325 Mg (65 Mg Iron) Tablet 325 MG PO DAILY, #30 TAB Docusate Sodium (Docusate Sodium) 100 Mg Capsule 100 MG PO BID, #14 CAP Ibuprofen (Ibu) 600 Mg Tablet 600 MG PO Q6H, #60 TAB Continued Medications: Wcz581/FA/Omega3/Dha/Fish Oil ( Gummies) 400 Mcg-32.5 Mg (25 Mg-7.5 Mg) Tab.chew 1 EACH PO DAILY, TAB Follow Up/Instructions Goal/Follow Up: 6 weeks with Anne Marie Jain Activity: Activity as Tolerated Driving Instructions: You May Drive Nothing Inside Vagina: No Douching, No [place], No Tampons Diet Discharge Diet: No Restrictions Symptoms to Report to : Bleeding Excessive, Fever Over 101 Degrees F, Lightheadedness, Shortness of Breath JOHN COWART MD Aug 17, 2022 10:45
[2022-08-17 11:56] VITALS: BP 122/72
[2022-08-17] MEDS: DOCUSATE SODIUM 100 MG (COLACE) CAP PO SCH (11:57)
== END 2022-08-17 12:30 | disposition home or self-care (01) | DRG 806 ==
LOC: LDRP 15:59 → WSo 15:59 → LDRP 16:50 → WS 08-16 06:25
PROVIDERS: ADMIT Family Medicine; ATTEND Family Medicine
PROC: 10E0XZZ Delivery of Products of Conception, External Approach (ICD-10-PCS; principal; 2022-08-16)
PROC: 0UQMXZZ Repair Vulva, External Approach (ICD-10-PCS; 2022-08-16)
PROC: 0HQ9XZZ Repair Perineum Skin, External Approach (ICD-10-PCS; 2022-08-16)
DX: O90.81 Anemia of the puerperium (principal); D62 Acute posthemorrhagic anemia; Z37.0 Single live birth; Z3A.39 39 weeks gestation of pregnancy; Z87.891 Personal history of nicotine dependence; O70.0 First degree perineal laceration during delivery; O71.82 Other specified trauma to perineum and vulva
CPT/HCPCS: 36415; 81000; 85025; 86780; 86850; 86900; 86901; 99212

== ENCOUNTER 2023-01-17 12:02 | Emergency (ER) | payer OTHER ==
[~2023-01-17 12:02] MED LIST changes: +DOCU100C37 PO; +FERR-65 PO; +IBUP-844 PO
--- NOTE | 2023-01-17 12:12 | ED Neck-Back Pain/Injury ---
General Chief Complaint: Head/Cervical Problems Stated Complaint: HEADACHE History of Present Illness Date Seen by Provider: January 17, 2023 Time Seen by Provider: 12:11 Initial Comments 32-year-old female is here with complaints of headache and right-sided neck pain after a 10 pound box fell on her head from about 15 feet high yesterday evening. Patient developed headache and right-sided neck pain after this incident. Denies dizziness, vision, hearing disturbances, LOC, nausea and vomiting. Patient was not wearing a helmet at work. Allergies and Home Medications Allergies Coded Allergies: Penicillins (Verified Allergy, Unknown, 01/21/19) Patient Home Medication List Home Medication List Reviewed: Yes Docusate Sodium (Docusate Sodium) 100 Mg Capsule, 100 MG PO BID Prescribed by: JOHN COWART on 08/17/22 1045 Ferrous Sulfate (Feosol) 325 Mg (65 Mg Iron) Tablet, 325 MG PO DAILY Prescribed by: JOHN COWART on 08/17/22 1045 Ibuprofen (Ibu) 600 Mg Tablet, 600 MG PO Q6H Prescribed by: JOHN COWART on 08/17/22 1045 Ipx042/FA/Omega3/Dha/Fish Oil ( Gummies) 400 Mcg-32.5 Mg (25 Mg-7.5 Mg) Tab.chew, 1 EACH PO DAILY, (Reported) Entered as Reported by: FELIPE MAY on 07/04/22 1349 Review of Systems Constitutional: no symptoms reported EENTM: no symptoms reported Respiratory: no symptoms reported Cardiovascular: no symptoms reported Gastrointestinal: no symptoms reported Genitourinary: no symptoms reported Musculoskeletal: see HPI, neck pain Skin: no symptoms reported Psychiatric/Neurological: Headache Past Wuwlryb-[place] Hx Immunizations Up To Date Tetanus Booster (TDap): Less than 5yrs Seasonal Allergies Seasonal Allergies: Yes Past Medical History Surgery/Hospitalization HX: GB, R knee arthroscopy, T&A Surgeries: Yes (knee surgery) Adenoidectomy, Gallbladder, Tonsillectomy Respiratory: No Cardiac: No Neurological: No Genitourinary: No Gastrointestinal: No Musculoskeletal: No Endocrine: No HEENT: No Cancer: No Psychosocial: No Family Medical History Heart Disease, Cancer Physical Exam Vital Signs Vital Signs - First Documented 01/17/23 12:15 Temp 37.0 Pulse 80 Resp 16 B/P (MAP) 119/84 (96) Pulse Ox 100 Capillary Refill : Height, Weight, BMI Height: 5'6.00" Weight: 125lbs. oz. 56.409209io; 27.27 BMI Method:Stated General Appearance: No Apparent Distress, WD/WN HEENT: PERRL/EOMI, TMs Normal Neck: Full Range of Motion, Supple, Other (Right-sided muscle spasm in the paracervical area) Back: Normal Inspection, No Vertebral Tenderness Neurologic/Psychiatric: Alert, Oriented x3, No Motor/Sensory Deficits, Normal Mood/Affect, wheel inspector II-XII Norm as Tested Skin: Normal Color Progress/Results/Core Measures Results/Orders My Orders Orders - BRENTON HORNE MD Ct Head/Cervical Spine Wo (01/17/23 12:18) Vital Signs/I&O 01/17/23 12:15 Temp 37.0 Pulse 80 Resp 16 B/P (MAP) 119/84 (96) Pulse Ox 100 Progress Progress Note : Progress Note 1. BLUNT INJURY TO HEAD: PARACERVICAL MUSCLE SPASM, RIGHT; - CT HEAD & C-SPINE: no acute finding - Toradol im STAT, given after CT result came back. - Advised heat application, ibuprofen as needed for pain - Concussion precautions given - Follow up with PCP in the next 3 to 7 days. Call for appointment. -Acute traumatic injury ruled out. -The patient was seen in the ED, and treated appropriately to presentation at a specific point in time. Patient is informed that there is a possibility that disease and illness can evolve and change in acuity rapidly or slowly after patient is discharged from the ER. Precautionary advice given to the patient for immediate return to ER if symptoms worsen or do not resolve, and to seek emergency care sooner rather than later. Pt also advised on the importance of PCP follow up and compliance with management and follow up plan with PCP and/or specialist, as this is part of the management plan. Pt verbally expressed understanding. Diagnostic Imaging Diagonstic Imaging: CT Plain Films/CT/US/NM/MRI: c-spine, head Comments [facility]. [place], [place] NAME: INDERJIT MARTINEZ MED REC#: [id number] PT STATUS: REG ER : 1990 PHYSICIAN: BRENTON HORNE MD ADMIT DATE: 01/17/23/ER FS Draft Date of Exam:01/17/23 CT HEAD/CERVICAL SPINE WO PROCEDURE: CT head and CT cervical spine without contrast. TECHNIQUE: Multiple contiguous axial images were obtained through the brain and cervical spine without the use of intravenous contrast. Sagittal and coronal reformations through the cervical spine were then performed. Auto Exposure Controls were utilized during the CT exam to meet ALARA standards for radiation dose reduction. INDICATION: Falling object landed on patient resulting in headache, dizziness and pain in the region of the neck and shoulders. CT HEAD: CT images of the head were obtained. FINDINGS: Ventricles and sulci are within normal limits for size. There is no intracranial hemorrhage identified. There is no abnormal mass effect or shift of midline structures. IMPRESSION: Unremarkable CT of the head. CT CERVICAL SPINE: Multiple contiguous axial CT images of the cervical spine were obtained with sagittal and coronal reformatted images produced. FINDINGS: The cervical curvature and alignment are within normal limits. The vertebral body heights and disc spaces are maintained without evidence of fracture or subluxation. There is no paraspinous hematoma. IMPRESSION: No CT evidence of acute cervical spinal abnormality. Dictated on workstation # [id number] Dict: 01/17/23 1248 Trans: 01/17/23 1259 [facility] [id number] Interpreted by: CRYSTAL ASHBY MD Electronically signed by: Departure Impression Primary Impression: Cervical paraspinal muscle spasm Additional Impression: Blunt head injury Qualified Codes: S09.8XXA - Other specified injuries of head, initial encounter Disposition: 01 HOME, SELF-CARE Condition: Stable Departure-Patient Inst. Referrals: INDERJIT SCHWARTZ APRN (PCP) Primary Care Physician [facility] (Family) Primary Care Physician Patient Instructions: Cervical Muscle Strain (DC), Concussion in adults, Muscle Spasm ED, Using Heat for Pain Add. Discharge Instructions: - Advised heat application, ibuprofen as needed for pain - Concussion precautions given - Follow up with PCP in the next 3 to 7 days. Call for appointment. All discharge instructions reviewed with patient and/or family. Voiced understanding. Work/School Note: Work Release Form Date Seen in the Emergency Department: January 17, 2023 Return to Work: January 18, 2023 Restrictions: No Restrictions, Follow Up With [facility] Other Restrictions Listed Below: no restrictions BRENTON HORNE MD January 17, 2023 12:12
--- NOTE | 2023-01-17 13:00 | Diagnostic Imaging Report ---
PROCEDURE: CT head and CT cervical spine without contrast. TECHNIQUE: Multiple contiguous axial images were obtained through the brain and cervical spine without the use of intravenous contrast. Sagittal and coronal reformations through the cervical spine were then performed. Auto Exposure Controls were utilized during the CT exam to meet ALARA standards for radiation dose reduction. INDICATION: Falling object landed on patient resulting in headache, dizziness and pain in the region of the neck and shoulders. CT HEAD: CT images of the head were obtained. FINDINGS: Ventricles and sulci are within normal limits for size. There is no intracranial hemorrhage identified. There is no abnormal mass effect or shift of midline structures. IMPRESSION: Unremarkable CT of the head. CT CERVICAL SPINE: Multiple contiguous axial CT images of the cervical spine were obtained with sagittal and coronal reformatted images produced. FINDINGS: The cervical curvature and alignment are within normal limits. The vertebral body heights and disc spaces are maintained without evidence of fracture or subluxation. There is no paraspinous hematoma. IMPRESSION: No CT evidence of acute cervical spinal abnormality. Dictated by: Dictated on workstation # [id number]
[2023-01-17] MEDS ORDERED: KETOROLAC 30 MG/ML VIAL IM ONE (13:30)
[2023-01-17 13:42] VITALS: BP 108/76
== END 2023-01-17 13:43 | disposition home or self-care (01) ==
LOC: EDUNIT# 12:02 → ER FS 12:07
DX: S09.90XA Unspecified injury of head, initial encounter (principal); M62.838 Other muscle spasm; W20.8XXA Other cause of strike by thrown, projected or falling object, initial encounter
CPT/HCPCS: 70450; 72125